=== PATIENT | female | born 1925 | race Caucasian/White ===

== ENCOUNTER 2016-08-27 14:02 | Observation (INO) ==
[2016-08-27] MEDS ORDERED: ALBUTEROL/IPRATROPIUM 2.5mg-0.5mg/3ml NEB AEROSOL ONE (14:28)
[2016-08-27] MEDS ORDERED: SALINE FLUSH 10ml SYRINGE IVF PRN (14:35)
[2016-08-27] MEDS ORDERED: ACETAMINOPHEN 325 MG TABLET PO ONE (15:12)
[2016-08-27] MEDS ORDERED: NS 1,000 ML IV ONE (15:29)
--- NOTE | 2016-08-27 15:29 | XRay Report ---
INDICATION: fever, congestion PROCEDURE: CHEST 2-VIEWS UPRIGHT (PA & LAT) Encounter: Initial COMPARISON: February 06, 2013 Findings: The lungs are clear without new focal airspace consolidation. There is no pleural effusion or pneumothorax. The heart size, pulmonary vascularity and mediastinal contours are unchanged. IMPRESSION: No acute cardiopulmonary disease. .
--- NOTE | 2016-08-27 15:34 | Emergency Department Report ---
Fever HPI - General Chief Complaint: Weakness Stated Complaint: fever/uti Time Seen by Provider: 08/27/16 14:18 Source: patient Mode of arrival: EMS - History of Present Illness HPI Narrative: 89 YO F brought to ED via EMS from long-term with report of fever today. Son who accompanies patient says that his mother has been declining for months but the last 24 hours she has been more fatigue and sleeping more. Patient usually sleep most of the day and only is up at meal times per son. Patient says she has had more SOA the last 24 hours and reports a cough for approx. 5 days. Patient denies chills, sinus congestion, CP, nausea, vomiting abdominal pain, dysuria or sick contacts. Patient is on O2 at long-term 2-3L/NC. complaint: fever - Related Data Home Medications Medication Instructions Recorded Confirmed Amlodipine Besylate 10 mg PO DAILY #0 07/10/10 09/01/16 Furosemide [Lasix] 40 mg PO DAILY #0 07/28/10 09/01/16 Leflunomide [Arava] 20 mg PO DAILY #0 09/10/11 09/01/16 Mirtazapine [Remeron] 7.5 mg PO HS #0 09/10/11 09/01/16 Sennosides/Docusate Sodium [Senna 1 tab PO BIDBS #0 09/10/11 09/01/16 S Tablet] Hydrocodone/APAP 10/325 [[place] 1 tab PO BIDLS #0 12/14/11 09/01/16 10/325] Loratadine 10 mg PO DAILY PRN #0 02/04/13 09/01/16 Omeprazole 20 mg PO DAILY #0 cap 02/04/13 09/01/16 Ondansetron HCl [Zofran] 4 mg PO TID #0 02/04/13 09/01/16 Acetaminophen 650 mg PO DAILY 08/27/16 09/01/16 Acetaminophen 650 mg PO Q4H PRN 08/27/16 09/01/16 CALCIUM CARBONATE Chewable [Tums] 500 mg PO BID 08/27/16 09/01/16 Famotidine [Pepcid] 20 mg PO HS PRN 08/27/16 09/01/16 Gabapentin [Neurontin] 200 mg PO HS 08/27/16 09/01/16 Guaifenesin/Dextromethorphan 10 ml PO Q4H PRN 08/27/16 09/01/16 [Guaifenesin Dm Syrup] Hydrocodone/Acetaminophen 1 tab PO Q6H PRN 08/27/16 09/01/16 [Hydrocodon-Acetaminophn 10-325] Mag Hydrox/Aluminum Hyd/Simeth 30 ml PO BID 08/27/16 09/01/16 [Maalox Advanced Suspension] Mag Hydrox/Aluminum Hyd/Simeth 30 ml PO Q2H PRN 08/27/16 09/01/16 [Maalox Advanced Suspension] Magnesium Hydroxide [Milk of 30 mg PO DAILY PRN 08/27/16 09/01/16 Magnesia] Nitroglycerin [Nitrostat] 0.4 mg SL Q5MIN3 PRN 08/27/16 09/01/16 Oxycodone Cr [OxyCONTIN] 40 mg PO Q12H 08/27/16 09/01/16 Polyethylene Glycol 3350 [Miralax] 17 gm PO DAILY 08/27/16 09/01/16 Potassium Chloride ER Tab [K-Dur] 20 meq PO DAILY 08/27/16 09/01/16 Azithromycin [Zithromax] 250 mg PO DAILY 09/01/16 09/01/16 PredniSONE [Deltasone] 20 mg PO WB 09/01/16 09/01/16 Previous Rx's Medication Instructions Recorded Albuterol/Ipratropium [Duoneb] 3 ml IH RTQID ampul 08/28/16 Allergies Allergy/AdvReac Type Severity Reaction Status Date / Time propoxyphene Allergy Severe HYPOTENSION Verified 09/01/16 10:56 codeine Allergy Unknown Verified 09/01/16 10:56 methotrexate Allergy Unknown Verified 09/01/16 10:56 Review of Systems All systems: reviewed and negative except as stated Constitutional: Reports: fever Respiratory: Reports: as per HPI, cough, dyspnea PFSH Patient Stated Medical History Other Yes: BLADDER CA RA HF CAD GERD Dysphagia UTI Obesity Constipation Surgical History: Cholecystectomy. Hysterectomy. Appendectomy. Uroscopy tube. Cystoscopy Family History: Noncontributory - Social History Housing: long-term Current occupational status: retired Physical Exam - Limitations Limitations: no limitations - General General appearance: alert, in no apparent distress - Normal Exams: Eyes:: Pupils are PERRLA w/ EOMI ENMT:: No facial trauma, nasal exudates, pharyngeal erythema, or exudates are noted Cardiovascular:: Regular rate and rhythm, without murmur or gallop Musculoskeletal:: No tenderness Integumentary:: No rashes Neurological:: Patient is alert, and oriented, cranial nerves, motor/sensory/ cerebellar, exams w/o gross deficits, to observation Psychiatric:: Patient exhibits, appropriate attention, emotion and affect - Respiratory Respiratory exam: Present: crackles (bibasilar) Course - Consultations Consultation #1: I discussed patient's HPI, PMH, labs, CXR, VS and exam findings with Dr. Krishnamurthy. Dr. Krishnamurthy will admit patient. Vital Signs Temperature 99.5 F 08/27/16 14:12 Pulse Rate 86 08/27/16 14:12 Respiratory Rate 18 08/27/16 14:12 Pulse Oximetry 90 08/27/16 14:12 Temperature 97.5 F 08/28/16 07:48 Pulse Rate 81 08/28/16 07:48 Respiratory Rate 22 08/28/16 10:45 Blood Pressure 142/66 H 08/28/16 07:48 Pulse Oximetry 95 08/28/16 10:45 Fever - MDM Narrative Medical decision making narrative: Patient is admitted observation status due to leukocytosis with bandemia, hx. of fever and increased respiratory effort. Heart rate has been in the 80s with stable blood pressure within normal limits while in the ED. I discussed labs and CXR results with patient and her son who agree with admission. - Differential Diagnosis Likely: fever of unknown origin, community acquired pneumonia, pyelonephritis, viral infection, sepsis - Medical Records Attestation: I reviewed the patient's medical records. - Lab Data Attestation: I reviewed the patient's lab results. WBC 18.4 with 17% bands, NA 148, lactate 0.8, procalcitonin 0.09. Patient has uroscopy tube with urine having 2+ blood, nitrate positive, WBC 3-5, 2+ bacteria. Result diagrams: 08/28/16 07:22 08/28/16 07:22 Lab Results 08/27/16 08/27/16 08/27/16 Range/Units 15:04 15:04 15:04 WBC 18.4 H (4.5-11.0) T/MM3 RBC 3.81 L (4.00-5.20) M/MM3 Hgb 10.7 L (12-16) GM/DL Hct 37.2 (36-46) % MCV 97.6 (80-100) UM3 MCH 28.1 (26-34) UUG MCHC 28.8 L (31-37) GM/DL RDW Std Deviation 52.9 H (36.9-50.2) FL Plt Count 368 (130-400) T/MM3 MPV 9.2 L (9.4-12.4) UM3 Immature Gran % (Auto) Not performed Neut % (Auto) Not performed Lymph % (Auto) Not performed [place] % (Auto) Not performed Eos % (Auto) Not performed Baso % (Auto) Not performed Neut # Not performed Lymph # Not performed [place] # Not performed Baso # Not performed Abs Immat Gran (auto) Not performed Neutrophils % (Manual) 70.0 H (33-66) % Band Neutrophils % 17.0 H (0-6) % Lymphocytes % (Manual) 6.0 L (23-45) % Monocytes % (Manual) 4.0 (0-9.0) % Eosinophils % (Manual) 1.0 (0-4) % Basophils % (Manual) 2.0 (0-2) % Neutrophils # (Manual) 12.9 H (1.8-7.7) T/MM3 Band Neutrophils # 3.1 T/MM3 Lymphocytes # (Manual) 1.1 (1-4.8) T/MM3 Monocytes # (Manual) 0.7 (0-0.8) T/MM3 Eosinophils # (Manual) 0.2 (0-0.5) T/MM3 Basophils # (Manual) 0.4 H (0-0.2) T/MM3 RBC Morph Comment 1+ poikilocytosis Turbidity < 20 (0-20) Sodium 148 H (134-144) MEQ/L Potassium 3.7 (3.6-5) MEQ/L Chloride 107 (98-107) MEQ/L Carbon Dioxide 31 H (22-30) MEQ/L Anion Gap 10 (5-15) MEQ/L BUN 20.0 H (7-17) MG/DL Creatinine 0.9 (0.7-1.2) MG/DL GFR Calculation 59 BUN/Creatinine Ratio 22 (6-26) RATIO Glucose 143 H (65-110) MG/DL Calculated Osmolality 289 H (261-280) MOSM/KG Calcium 8.3 L (8.4-10.2) MG/DL Total Bilirubin 0.30 (0.20-1.30) MG/DL Icterus Index < 2 (0-7) AST 16 (14-36) U/L ALT 30 (9-52) U/L Alkaline Phosphatase 130 H (38-126) U/L Total Protein 5.9 L (6.3-8.2) G/DL Albumin 3.5 (3.5-5.0) G/DL Globulin 2.4 (2.4-3.6) G/DL Albumin/Globulin Ratio 1.5 (1.1-2.2) RATIO Plasma Lactate 0.8 (0.6-2.2) MMOL/L Procalcitonin 0.09 NG/ML Specimen Hemolysis < 15 (0-25) Ur Collection Type Urine Color (YELLOW) Urine Clarity Urine pH (5.0-8.0) Ur Specific [place] (1.015-1.025) Urine Protein (NEGATIVE) Urine Glucose (UA) (NEGATIVE) Urine Ketones (NEGATIVE) Urine Occult Blood (NEGATIVE) Urine Nitrate (NEGATIVE) Urine Bilirubin (NEGATIVE) Urine Urobilinogen (NORMAL) EU/DL Ur Leukocyte Esterase (NEGATIVE) Urine RBC (0-3) /HPF Urine WBC (0-5) /HPF Urine WBC Clumps Ur Squamous Epith Cells Urine Bacteria (NEGATIVE) Ur Culture Indicated? 08/27/16 Range/Units 15:57 WBC (4.5-11.0) T/MM3 RBC (4.00-5.20) M/MM3 Hgb (12-16) GM/DL Hct (36-46) % MCV (80-100) UM3 MCH (26-34) UUG MCHC (31-37) GM/DL RDW Std Deviation (36.9-50.2) FL Plt Count (130-400) T/MM3 MPV (9.4-12.4) UM3 Immature Gran % (Auto) Neut % (Auto) Lymph % (Auto) [place] % (Auto) Eos % (Auto) Baso % (Auto) Neut # Lymph # [place] # Baso # Abs Immat Gran (auto) Neutrophils % (Manual) (33-66) % Band Neutrophils % (0-6) % Lymphocytes % (Manual) (23-45) % Monocytes % (Manual) (0-9.0) % Eosinophils % (Manual) (0-4) % Basophils % (Manual) (0-2) % Neutrophils # (Manual) (1.8-7.7) T/MM3 Band Neutrophils # T/MM3 Lymphocytes # (Manual) (1-4.8) T/MM3 Monocytes # (Manual) (0-0.8) T/MM3 Eosinophils # (Manual) (0-0.5) T/MM3 Basophils # (Manual) (0-0.2) T/MM3 RBC Morph Comment Turbidity (0-20) Sodium (134-144) MEQ/L Potassium (3.6-5) MEQ/L Chloride (98-107) MEQ/L Carbon Dioxide (22-30) MEQ/L Anion Gap (5-15) MEQ/L BUN (7-17) MG/DL Creatinine (0.7-1.2) MG/DL GFR Calculation BUN/Creatinine Ratio (6-26) RATIO Glucose (65-110) MG/DL Calculated Osmolality (261-280) MOSM/KG Calcium (8.4-10.2) MG/DL Total Bilirubin (0.20-1.30) MG/DL Icterus Index (0-7) AST (14-36) U/L ALT (9-52) U/L Alkaline Phosphatase (38-126) U/L Total Protein (6.3-8.2) G/DL Albumin (3.5-5.0) G/DL Globulin (2.4-3.6) G/DL Albumin/Globulin Ratio (1.1-2.2) RATIO Plasma Lactate (0.6-2.2) MMOL/L Procalcitonin NG/ML Specimen Hemolysis (0-25) Ur Collection Type Urine, catheter Urine Color Yellow (YELLOW) Urine Clarity Clear Urine pH 7.5 (5.0-8.0) Ur Specific [place] 1.015 (1.015-1.025) Urine Protein Negative (NEGATIVE) Urine Glucose (UA) Negative (NEGATIVE) Urine Ketones Negative (NEGATIVE) Urine Occult Blood 2+ A (NEGATIVE) Urine Nitrate Positive A (NEGATIVE) Urine Bilirubin Negative (NEGATIVE) Urine Urobilinogen 0.2 (NORMAL) EU/DL Ur Leukocyte Esterase Negative (NEGATIVE) Urine RBC 5-10 H (0-3) /HPF Urine WBC 3-5 (0-5) /HPF Urine WBC Clumps Few Ur Squamous Epith Cells 0-5 Urine Bacteria 2+ H (NEGATIVE) Ur Culture Indicated? Cult reflexed &setup - Radiology Data Attestation: I reviewed the patient's radiology results. No acute cardiopulmonary finding. Disposition Clinical Impression: Fever Qualifiers: Fever type: unspecified Qualified Code(s): R50.9 - Fever, unspecified Leukocytosis Qualifiers: Leukocytosis type: bandemia Qualified Code(s): D72.825 - Bandemia Disposition: 02 To OBS [facility] [place] Condition: Improved Time of Disposition: 16:25 - Seen By: midlevel
--- NOTE | 2016-08-27 17:22 | History & Physical Report ---
<Heather Marroquin V - Last Filed: 08/27/16 17:53> History of Present Illness Date: 08/27/16 Chief complaint: Fever, Leukocytosis HPI: Patient is an 89-year-old female who was brought to the emergency room today from [facility] for acute evaluation of fever. She reprots having increased difficulty breathing since yesterday however has had a cough longer. Reports fever started today. She is chronically on oxygen. However, reports that over the last 24 hours has been more short of breath with some wheezing. Further evaluation in the emergency was obtained in the emergency room, including laboratory studies and chest x-ray. Patient was found have an elevated white count of 18.4 (She is chronically on steroids), hemoglobin 10.7, hematocrit 37.2, platelet count 368. Neutrophils 70% with 17% bandemia. Sodium is elevated at 148, potassium 3.7, BUNs 20, creatinine 0.9, glucose 143. Venous lactate was 0.8, pro calcitonin 0.09. A urinalysis is obtained showing 2+ blood , positive nitrates with 5-10 Rbc's and 2+ bacteria. This was obtained from her urostomy. She does chronically utilize oxygen at risk continue to require 4 liters by nasal cannula. She is afebrile. Pulse in the 80s, blood pressure normal. Chest X-ray was unremarkable without evidence of acute infiltrate. Given findings of leukocytosis, fever and increased respiratory effort, the hospitalist services were contacted and accepted patient for outpatient admission for further evaluation and treatment. Did discuss advance directives with patient and son. she does request to be a do not resuscitate Review of Systems All systems: reviewed and no additional remarkable complaints except as stated - Constitutional Constitutional: Present: fatigue, fever(s) - Respiratory Respiratory: Present: cough, dyspnea, wheezing PFSH Patient Stated Medical History History of bladder cancer with cystostomy Congestive heart failure Chronic pain. Coronary artery disease. GERD Depression Rheumatoid arthritis Insomnia History of small bowel obstruction Surgical History: Removal of Bladder due to bladder cancer. Appendectomy. Cholecystectomy. Abdominal hernia surgery 2. Stoma surgery Family History: Mother-hypertension Father-heart disease, tremors - Social History Smoking status: Never smoker Substance use type: does not use Alcohol intake: never Current occupational status: retired Social history: Primary care provider, Dr. Merino Medications Home Medications Medication Instructions Recorded Confirmed Type Amlodipine Besylate 10 mg PO DAILY #0 07/10/10 08/27/16 History Furosemide [Lasix] 40 mg PO DAILY #0 07/28/10 08/27/16 History Leflunomide [Arava] 20 mg PO DAILY #0 09/10/11 08/27/16 History Mirtazapine [Remeron] 7.5 mg PO HS #0 09/10/11 08/27/16 History Sennosides/Docusate Sodium [Senna 1 tab PO BID #0 09/10/11 08/27/16 History S Tablet] Hydrocodone/APAP 10/325 [[place] 1 tab PO BID #0 12/14/11 08/27/16 History 10/325] Loratadine 10 mg PO DAILY PRN #0 02/04/13 08/27/16 History Omeprazole 20 mg PO ACB #0 cap 02/04/13 08/27/16 History Ondansetron HCl [Zofran] 4 mg PO TID #0 02/04/13 08/27/16 History Acetaminophen 650 mg PO DAILY 08/27/16 08/27/16 History Acetaminophen 650 mg PO Q4H PRN 08/27/16 08/27/16 History Albuterol/Ipratropium [Duoneb] 1 unit AEROSOL Q2H PRN 08/27/16 08/27/16 History CALCIUM CARBONATE Chewable [Tums] 500 mg PO BID 08/27/16 08/27/16 History Famotidine [Pepcid] 20 mg PO HS PRN 08/27/16 08/27/16 History Gabapentin [Neurontin] 200 mg PO HS 08/27/16 08/27/16 History Guaifenesin/Dextromethorphan 10 ml PO Q4H PRN 08/27/16 08/27/16 History [Guaifenesin Dm Syrup] Hydrocodone/Acetaminophen 1 tab PO Q6H PRN 08/27/16 08/27/16 History [Hydrocodon-Acetaminophn 10-325] Levofloxacin [Levaquin] 250 mg PO DAILY 08/27/16 08/27/16 History Mag Hydrox/Aluminum Hyd/Simeth 30 ml PO BID 08/27/16 08/27/16 History [Maalox Advanced Suspension] Mag Hydrox/Aluminum Hyd/Simeth 30 ml PO Q2H PRN 08/27/16 08/27/16 History [Maalox Advanced Suspension] Magnesium Hydroxide [Milk of 30 mg PO DAILY PRN 08/27/16 08/27/16 History Magnesia] Nitroglycerin [Nitrostat] 0.4 mg SL Q5MIN3 PRN MDD C 08/27/16 08/27/16 History Oxycodone Cr [OxyCONTIN] 40 mg PO Q12H 08/27/16 08/27/16 History Polyethylene Glycol 3350 [Miralax] 17 gm PO DAILY 08/27/16 08/27/16 History Potassium Chloride ER Tab [K-Dur] 20 meq PO DAILY 08/27/16 08/27/16 History PredniSONE [Deltasone] 5 mg PO NOON 08/27/16 08/27/16 History Allergies Allergy/AdvReac Type Severity Reaction Status Date / Time propoxyphene Allergy Severe HYPOTENSION Verified 08/27/16 14:39 codeine Allergy Unknown Verified 08/27/16 14:39 methotrexate Allergy Unknown Verified 08/27/16 14:39 Exam Vital Signs: Temp Pulse Resp BP Pulse Ox 99.5 F 91 18 139/65 91 08/27/16 14:12 08/27/16 15:45 08/27/16 14:44 08/27/16 15:00 08/27/16 15:00 Height: 1.57 m Weight: 80.5 kg - Constitutional Present: mild distress - Routine HEENT Exam Eye: Present: EOMI, PERRL ENT: Present: mucous membranes moist - Routine Respiratory Exam Present: wheezes, crackles - Routine Cardiovascular Exam Present: RRR, S1, S2, no murmur - Routine Abdominal Exam Present: soft, normoactive bowel sounds, non distended, non tender - Routine Skin Exam Present: intact, warm - Routine Neurological Exam Present: alert, oriented X3, CN II-XII intact - Routine Psychiatric Exam Present: normal affect, normal thought process Results - Labs CBC & Chem 7: 08/27/16 15:04 08/27/16 15:04 Assessment and Plan (1) SIRS (systemic inflammatory response syndrome) Current visit: Yes Status: Acute (2) Leukocytosis Current visit: Yes Status: Acute (3) Respiratory difficulty Current visit: Yes Status: Acute (4) Fever Current visit: Yes Status: Acute (5) Bandemia Current visit: Yes Status: Acute (6) Hypernatremia Current visit: Yes Status: Acute (7) Bladder cancer Current visit: Yes Status: Acute (8) History of cystostomy Current visit: Yes Status: Acute (9) CAD (coronary artery disease) Current visit: Yes Status: Acute (10) CHF (congestive heart failure) Current visit: Yes Status: Acute (11) Fever Current visit: Yes Status: Acute (12) Leukocytosis Current visit: Yes Status: Acute (13) Chronic steroid use Current visit: Yes Status: Chronic DVT Prophylaxis: SCD's Resuscitation Status: Do Not Resuscitate Assessment and Plan: Admit patient as a outpatient for Fever, Leukocytosis with increased respiratory effort SIRS with a suspected pulmonary source completed with leukocytosis, bandemia, and fever will initiate sepsis protocol Initial venous lactate and pro-calcitonin are negative. Will repeat lactate at 2000 Should antimicrobial coverage including azithromycin and Rocephin IV daily. Urine culture, sputum culture and blood cultures are pending. She is chronically on prednisone 5 grams daily for treatment of her chronic RA. Will increase this to 20 milligrams daily to help with pulmonary inflammation. Chronic prednisone use may also be causing leukocytosis. Obtain a proBNP at this time to evaluate CHF status. Will monitor patient on Cardiac telemetry. Did review home medications. Will continue meds. Help Lasix currently as she does appear mildly dehydrated. Patient is a do not resuscitate and this orders written Check CBC and BMP tomorrow morning to follow blood counts, renal function and electrolytes Discussed orders, and plan of care with attending Dr Krishnamurthy [facility] Course Summary Disclaimer: The visit summary below is not to be considered part of the above Progress Note. <Jarad Krishnamurthy - Last Filed: 08/27/16 18:38> History of Present Illness Date: 08/27/16 Exam Vital Signs: Temp Pulse Resp BP Pulse Ox 98.4 F 84 44 H 131/61 82 L 08/27/16 17:50 08/27/16 17:50 08/27/16 17:50 08/27/16 17:50 08/27/16 17:50 Height: 1.55 m Weight: 77.3 kg Results - Labs CBC & Chem 7: 08/27/16 15:04 08/27/16 15:04 Assessment and Plan (1) Leukocytosis Current visit: Yes Status: Acute (2) Fever Current visit: Yes Status: Acute (3) Respiratory difficulty Current visit: Yes Status: Acute (4) Bandemia Current visit: Yes Status: Acute (5) Hypernatremia Current visit: Yes Status: Acute (6) Bladder cancer Current visit: Yes Status: Acute (7) History of cystostomy Current visit: Yes Status: Acute (8) CAD (coronary artery disease) Current visit: Yes Status: Acute (9) CHF (congestive heart failure) Current visit: Yes Status: Acute (10) Fever Current visit: Yes Status: Acute (11) Leukocytosis Current visit: Yes Status: Acute (12) SIRS (systemic inflammatory response syndrome) Current visit: Yes Status: Acute (13) Chronic steroid use Current visit: Yes Status: Chronic Assessment and Plan: Pt comes from nursing facility and reports mostly respiratory sx's as reported above. CXR is unremarkable for acute pathology and no other source of infection is suspected at this point. Will do CAP coverage for now and do work up for other infectious etiology. Repeat CXR tomorrow to see if pt was possibly dehydrated and possibly develops in infiltrtate, if no infiltrate then can consider stopping abx. Viral resp panel has also been ordered to evaluate for viral illness which seems most likely at this point. Will do careful IV fluids since hx of CHF although not clear how severe, will hold lasix at this point. Will stress dose steroids since on chronically for RA. Restart her home pain medications. Pt was seen and examined independently, agree with history and exam findings and care plan was discussed with BET TAKER/ARPN. Hospital Course Summary Disclaimer: The visit summary below is not to be considered part of the above Progress Note.
[2016-08-27] MEDS ORDERED: CEFTRIAXONE 1 G in NS 100 ML IV SCH (17:45)
[2016-08-27] MEDS ORDERED: AZITHROMYCIN IV 500 MG in NS 250ml 250 ML IV SCH (17:45)
[2016-08-27] MEDS ORDERED: ACETAMINOPHEN 325 MG TABLET PO PRN (17:46)
[2016-08-27] MEDS ORDERED: HYDROCODONE/APAP 10 MG/325 MG TABLET PO PRN (17:46)
[2016-08-27] MEDS ORDERED: LORATADINE 10 MG TABLET PO PRN (17:46)
[2016-08-27] MEDS ORDERED: MAG-AL + SIM ORAL LIQUID 30ml PO PRN (18:07)
[2016-08-27 18:12] VITALS: BMI 32.1
[2016-08-27] MEDS ORDERED: FALL RISK - PHARMACY CONSULT XX PRN (18:46)
[2016-08-27] MEDS: AMLODIPINE 10 MG TABLET PO SCH (18:57)
[2016-08-27] MEDS: PredniSONE 20 MG TABLET PO SCH (18:57)
[2016-08-27] MEDS: OXYCODONE 40 MG PO SCH (18:58)
[2016-08-27] MEDS: ALBUTEROL/IPRATROPIUM 2.5mg-0.5mg/3ml NEB IH SCH (20:02)
[2016-08-27] MEDS: 1/2 NS 1,000 ML IV SCH (21:54)
[2016-08-27] MEDS: SENNA + DOCUSATE TABLET PO SCH (21:56)
[2016-08-27] MEDS: HYDROCODONE/APAP 10 MG/325 MG TABLET PO SCH (21:56)
[2016-08-27] MEDS ORDERED: GABAPENTIN 100 MG CAPSULE PO SCH (22:00)
[2016-08-27] MEDS ORDERED: MIRTAZAPINE 15 MG TABLET PO SCH (22:00)
[2016-08-28] MEDS: 1/2 NS 1,000 ML IV SCH ×2 (04:48→11:42)
[2016-08-28] MEDS: OXYCODONE 40 MG PO SCH (05:44)
[2016-08-28] MEDS: ALBUTEROL/IPRATROPIUM 2.5mg-0.5mg/3ml NEB IH SCH (07:27)
[2016-08-28 07:53] VITALS: BP 142/66; PULSE 81; TEMP 97.5
[2016-08-28] MEDS: PredniSONE 20 MG TABLET PO SCH (08:59)
[2016-08-28] MEDS ORDERED: POLYETHYL GLYCOL 3350 17gm PACKET PO SCH (09:00)
[2016-08-28] MEDS ORDERED: FUROSEMIDE 40 MG TABLET PO SCH (09:00)
[2016-08-28] MEDS ORDERED: LEFLUNOMIDE 10 MG TABLET PO SCH (09:00)
[2016-08-28] MEDS: HYDROCODONE/APAP 10 MG/325 MG TABLET PO SCH (09:01)
[2016-08-28] MEDS: AMLODIPINE 10 MG TABLET PO SCH (09:01)
[2016-08-28] MEDS: SENNA + DOCUSATE TABLET PO SCH (09:02)
--- NOTE | 2016-08-28 10:13 | Progress Note ---
<Heather Marroquin V - Last Filed: 08/28/16 10:09> Subjective: Ebony is seen this morning in follow up. She is more alert than she was yesterday on admission. She continues to have significant amount of wheezing and crackles. This morning she feels that she is having an increase in wheezing and coughing, and she does state that she has been drinking increased fluids overnight. Denies having chest pain, or GI complaints. Does note chronic achy joints related to rheumatoid arthritis. Urostomy is draining well without difficulties. No Peripheral edema noted. Objective Vital signs: Temp Pulse Resp BP Pulse Ox 97.5 F 81 20 142/66 H 93 08/28/16 07:48 08/28/16 07:48 08/28/16 07:48 08/28/16 07:48 08/28/16 07:48 Weight: 79.5 kg - Constitutional Present: mild distress - Routine HEENT Exam Head: Present: normocephalic, atraumatic Eye: Present: EOMI, PERRL ENT: Present: mucous membranes moist - Routine Respiratory Exam Present: wheezes, crackles - Routine Cardiovascular Exam Present: RRR, S1, S2, no murmur - Routine Abdominal Exam Present: soft, normoactive bowel sounds - Routine Exam Comments: Urostomy intact without difficulty - Routine Extremities Exam Present: no edema - Routine Back/Spine/Pelvis Exam Back/Spine: Present: full ROM - Routine Skin Exam Present: intact, warm Comments: Chronic achy joints related to her rheumatoid arthritis - Routine Neurological Exam Present: alert, oriented X3, CN II-XII intact - Routine Psychiatric Exam Present: normal affect, normal thought process Results - Labs CBC & Chem 7: 08/28/16 07:22 08/28/16 07:22 Assessment and Plan (1) SIRS (systemic inflammatory response syndrome) Current visit: Yes Status: Acute (2) Leukocytosis Current visit: Yes Status: Acute (3) Respiratory difficulty Current visit: Yes Status: Acute (4) Fever Current visit: Yes Status: Acute (5) Bandemia Current visit: Yes Status: Acute (6) Hypernatremia Current visit: Yes Status: Acute (7) Chronic steroid use Current visit: Yes Status: Chronic (8) Bladder cancer Current visit: Yes Status: Acute (9) History of cystostomy Current visit: Yes Status: Acute (10) CAD (coronary artery disease) Current visit: Yes Status: Acute (11) CHF (congestive heart failure) Current visit: Yes Status: Acute (12) Fever Current visit: Yes Status: Acute (13) Leukocytosis Current visit: Yes Status: Acute (14) Infection due to parainfluenza virus 3 Current visit: Yes Status: Acute Assessment and Plan: 08/28/16 Parainfluenza virus-Continues to have increase wheezing. He was scheduled DuoNeb breathing treatments 4 times a day. RT is suctioning patient routinely. Continuing to cover patient for pneumonia. Given her leukocytosis, bandemia, and respiratory effort on admission. Continue with a azithromycin and Rocephin. Leukocytosis continues to improve, white count today is down slightly to 12.2. Bandemia has resolved. Baseline prednisone was increased to 40 mg daily to help with pulmonary inflammation. - Chronic home oxygen- Patient is unclear her baseline oxygen however she thinks she uses 1 liter all the time - CAD/CHF- Initially Lasix was placed on hold due to Hypernatremia and dehydration. May- need to consider resuming this for diuresising. - Urostomy without complications - RA- appears to be well controlled Continue to follow daily CBC and BMP to monitor blood counts, renal function and electrolytes. Will discuss further orders and plan of care with attending, Dr. Brantley Sepsis Assessment - Evaluation Sepsis screening result: No Definite Risk Hospital Course Summary Disclaimer: The visit summary below is not to be considered part of the above Progress Note. <Arabella Brantley - Last Filed: 08/28/16 12:49> Objective Vital signs: Temp Pulse Resp BP Pulse Ox 97.5 F 81 22 142/66 H 95 08/28/16 07:48 08/28/16 07:48 08/28/16 10:45 08/28/16 07:48 08/28/16 10:45 Results - Labs CBC & Chem 7: 08/28/16 07:22 08/28/16 07:22 Assessment and Plan (1) Infection due to parainfluenza virus 3 Current visit: Yes Status: Acute (2) Leukocytosis Current visit: Yes Status: Acute (3) Fever Current visit: Yes Status: Resolved (4) Respiratory difficulty Current visit: Yes Status: Acute With hypoxia 08/28/16 12:40 (5) Bandemia Current visit: Yes Status: Resolved (6) Hypernatremia Current visit: Yes Status: Resolved (7) Bladder cancer Current visit: Yes Status: Chronic (8) History of cystostomy Current visit: Yes Status: Chronic (9) CAD (coronary artery disease) Current visit: Yes Status: Chronic (10) CHF (congestive heart failure) Current visit: Yes Status: Chronic (11) Fever Current visit: Yes Status: Resolved (12) SIRS (systemic inflammatory response syndrome) Current visit: Yes Status: Acute (13) Chronic steroid use Current visit: Yes Status: Chronic Assessment and Plan: I have independently evaluated and examined this patient. I reviewed the chart, the patient's history, and the OFFICE SERVICES ASSISTANT's documented findings as above. We discussed and formulated the assessment and plan as above with additions as below: Mrs. Boyd reports that cough is improved overall although breathing treatments cause increased cough. She is still coughing up sputum but is unclear if characteristics she is swallowing it. She denied pleuritic pain or palpitations and reports that she slept well. Oxygen remains at 4 L with saturation of 95% currently. Home oxygen flow rate is uncertain although patient suggests 1 L. NAD, respirations nonlabored, coarse breath sounds-improved with cough. No wheezing currently but some rhonchi at the bases. Chest x-ray reviewed by myself-TIFFANI. Parainfluenza 3 positive; sputum culture with gram-positive cocci-White cell/ epithelial cells not commented on. Stable for return to nursing facility. Continue supplemental oxygen continuously , titrate as status permits. Continue azithromycin orally for 4 additional [id number] cocci reported in sputum culture. Titrate prednisone over the next week back to chronic dose as outlined on medication list. Follow-up with Dr. Merino in 7-10 days. Regular diet. Activities as tolerated. Hospital Course Summary Disclaimer: The visit summary below is not to be considered part of the above Progress Note.
[2016-08-28] MEDS ORDERED: ALBUTEROL/IPRATROPIUM 2.5mg-0.5mg/3ml NEB IH SCH (11:00)
[2016-08-28 11:06] VITALS: RESP 22; O2SAT 95
--- NOTE | 2016-08-28 12:24 | Discharge Instructions ---
Discharge Plan - Med Rec/Dispo Referrals/Follow Up: Yolanda Merino MD [Family Provider] - Prescriptions: New Albuterol/Ipratropium [Duoneb] 3 ml IH RTQID ampul PredniSONE [Deltasone] 20 mg PO WB #5 Azithromycin [Zithromax] 1 tab PO DAILY #4 tab Continue Leflunomide [Arava] 20 mg PO DAILY #0 Albuterol/Ipratropium [Duoneb] 1 unit AEROSOL Q2H PRN PRN Reason: Prn Orders Acetaminophen 650 mg PO Q4H PRN PRN Reason: Pain Hydrocodone/Acetaminophen [Hydrocodon-Acetaminophn 10-325] 1 tab PO Q6H PRN PRN Reason: Pain Mag Hydrox/Aluminum Hyd/Simeth [Maalox Advanced Suspension] 30 ml PO Q2H PRN PRN Reason: Heartburn Nitroglycerin [Nitrostat] 0.4 mg SL Q5MIN3 PRN MDD C PRN Reason: Chest Pain Magnesium Hydroxide [Milk of Magnesia] 30 mg PO DAILY PRN PRN Reason: Constipation Mag Hydrox/Aluminum Hyd/Simeth [Maalox Advanced Suspension] 30 ml PO BID Acetaminophen 650 mg PO DAILY Polyethylene Glycol 3350 [Miralax] 17 gm PO DAILY Oxycodone Cr [OxyCONTIN] 40 mg PO Q12H Potassium Chloride ER Tab [K-Dur] 20 meq PO DAILY CALCIUM CARBONATE Chewable [Tums] 500 mg PO BID Amlodipine Besylate 10 mg PO DAILY #0 Furosemide [Lasix] 40 mg PO DAILY #0 Sennosides/Docusate Sodium [Senna S Tablet] 1 tab PO BID #0 Mirtazapine [Remeron] 7.5 mg PO HS #0 Hydrocodone/APAP 10/325 [[place] 10/325] 1 tab PO BID #0 Ondansetron HCl [Zofran] 4 mg PO TID #0 Loratadine 10 mg PO DAILY PRN #0 PRN Reason: Rhinitis Omeprazole 20 mg PO ACB #0 cap Guaifenesin/Dextromethorphan [Guaifenesin Dm Syrup] 10 ml PO Q4H PRN PRN Reason: Cough Famotidine [Pepcid] 20 mg PO HS PRN PRN Reason: Heartburn Gabapentin [Neurontin] 200 mg PO HS PredniSONE [Deltasone] 5 mg PO NOON #0 Discontinued Levofloxacin [Levaquin] 250 mg PO DAILY levoFLOXacin [Levaquin] 500 mg PO DAILY 5 Days Discharge Instructions/Outpatient Orders: Final Provider Discharge Instructions Location: Determined By Patient - Disposition 04 To [facility] Home/Facility
--- NOTE | 2016-08-28 12:35 | Extended Care Facility Orders ---
Admission Orders Admit to:: ICF Allergies/Adverse Reactions: Allergies propoxyphene Allergy (Severe, Verified 08/27/16 14:39) HYPOTENSION codeine Allergy (Unknown, Verified 08/27/16 14:39) methotrexate Allergy (Unknown, Verified 08/27/16 14:39) Admitting Diagnosis: Fever,Leukocytosis Admitting Physician: Arabella Brantley MD Attending Physician: Arabella Brantley MD Code Status: Do Not Resuscitate Anticiapted Length of Stay: 30 days or less Rehab Potential: fair Rehab Prognosis: fair Diet: Regular diet May use Facility Protocol or Standing Orders: Yes May have flu vaccine: Yes Residential Certification: I certify that SNF services are required to be given on an Inpatient basis because of the patients need for fci care on a continuing basis for the condition(s) for which he/she received inpatient hospital services prior to his/her transfer to the SNF. SNF inpatient care is necessary for the following reasons Indication for Residential: Not Applicable - Additional Information In Event of Arrest: Do Not Start CPR Referrals: Yolanda Merino MD [Family Provider] - Additional Orders: REGULAR DIET,. Sputum culture pending at discharge; respiratory viral panel positive parainfluenza 3. Chest x-ray negative for infiltrate/pneumonia. Oxygen at 3-4 L per nasal cannula continuously-titrate as tolerated to saturation > 90%. Oxygen should be worn at all times pending reevaluation. Acappella valve with breathing treatments 3-4 times daily to help mobilize secretions. Prednisone dose increased to 20 mg daily for the next 5 days, then 10 mg for 3 days, then return to usual dose of 5 mg daily. Recommend follow-up with Dr. Merino or JASON in 7-10 days.
--- NOTE | 2016-08-28 12:53 | Discharge Summary ---
Discharge Summary- Blank Discharge Summary: Mrs. Boyd was hospitalized on 08/27 with fever and cough. Respiratory viral panel was positive for Para-Influenza 3. Chest x-ray negative. Patient was felt stable for return to her nursing facility 08/28 with supportive therapy and azithromycin to help mobilize secretions and as a precaution for report of gram-positive cocci on sputum culture. Fever, leukocytosis, left shift all resolved quickly. Patient remains on supplemental oxygen at 3-4 L at discharge. She was felt stable for discharge to [facility]. Activity is as tolerated, diet regular. Follow-up with Dr. Merino in 7-10 days. Please refer to the progress note of 08/28 for details of hospitalization. Primary diagnosis: Parainfluenza 3 bronchitis
== END 2016-08-28 13:45 ==
LOC: MED 14:02 → ED 14:02 → MED 17:50
PROVIDERS: ADMIT Internal Medicine; ATTEND Internal Medicine

== ENCOUNTER 2016-09-01 10:44 | Inpatient (IN) ==
--- NOTE | 2016-09-01 11:40 | XRay Report ---
Indication: SOB PROCEDURE: XR chest 1V: Encounter: Initial Comparison: 08/27/2016 Findings: The lungs are stable in appearance without new focal airspace consolidation. There is no pleural effusion or pneumothorax. The heart size, pulmonary vascularity and mediastinal contours are unchanged. IMPRESSION: Stable appearance of the chest without acute cardiopulmonary disease. .
--- NOTE | 2016-09-01 11:42 | Emergency Department Report ---
General Adult HPI - General Chief complaint: Shortness of Breath/Dyspnea Stated complaint: dyspnea Time Seen by Provider: 09/01/16 10:56 Source: patient, family Mode of arrival: EMS Limitations: no limitations - History of Present Illness HPI narrative: 89-year-old female presents to emergency department with a chief complaint of shortness of breath. Patient noted onset of symptoms a couple of days ago after being treated for a UTI and influenza and released from [facility]. She denies any current pain or discomfort. Patient notes that her symptoms have been gradually progressive in nature since onset. Patient does use chronic home oxygen at approximately 4 L per nasal cannula. She notes that she does feel better after breathing treatments and increasing her oxygen level. She was at [facility] when her symptoms began to exacerbate " a few days ago." No other complaints or associated symptoms. - Related Data Home Medications Medication Instructions Recorded Confirmed Amlodipine Besylate 10 mg PO DAILY #0 07/10/10 09/01/16 Furosemide [Lasix] 40 mg PO DAILY #0 07/28/10 09/01/16 Leflunomide [Arava] 20 mg PO DAILY #0 09/10/11 09/01/16 Mirtazapine [Remeron] 7.5 mg PO HS #0 09/10/11 09/01/16 Sennosides/Docusate Sodium [Senna 1 tab PO BIDBS #0 09/10/11 09/01/16 S Tablet] Hydrocodone/APAP 10/325 [[place] 1 tab PO BIDLS #0 12/14/11 09/01/16 10/325] Loratadine 10 mg PO DAILY PRN #0 02/04/13 09/01/16 Omeprazole 20 mg PO DAILY #0 cap 02/04/13 09/01/16 Ondansetron HCl [Zofran] 4 mg PO TID #0 02/04/13 09/01/16 Acetaminophen 650 mg PO DAILY 08/27/16 09/01/16 Acetaminophen 650 mg PO Q4H PRN 08/27/16 09/01/16 CALCIUM CARBONATE Chewable [Tums] 500 mg PO BID 08/27/16 09/01/16 Famotidine [Pepcid] 20 mg PO HS PRN 08/27/16 09/01/16 Gabapentin [Neurontin] 200 mg PO HS 08/27/16 09/01/16 Guaifenesin/Dextromethorphan 10 ml PO Q4H PRN 08/27/16 09/01/16 [Guaifenesin Dm Syrup] Hydrocodone/Acetaminophen 1 tab PO Q6H PRN 08/27/16 09/01/16 [Hydrocodon-Acetaminophn 10-325] Mag Hydrox/Aluminum Hyd/Simeth 30 ml PO BID 08/27/16 09/01/16 [Maalox Advanced Suspension] Mag Hydrox/Aluminum Hyd/Simeth 30 ml PO Q2H PRN 08/27/16 09/01/16 [Maalox Advanced Suspension] Magnesium Hydroxide [Milk of 30 mg PO DAILY PRN 08/27/16 09/01/16 Magnesia] Nitroglycerin [Nitrostat] 0.4 mg SL Q5MIN3 PRN 08/27/16 09/01/16 Oxycodone Cr [OxyCONTIN] 40 mg PO Q12H 08/27/16 09/01/16 Polyethylene Glycol 3350 [Miralax] 17 gm PO DAILY 08/27/16 09/01/16 Potassium Chloride ER Tab [K-Dur] 20 meq PO DAILY 08/27/16 09/01/16 Azithromycin [Zithromax] 250 mg PO DAILY 09/01/16 09/01/16 PredniSONE [Deltasone] 20 mg PO WB 09/01/16 09/01/16 Previous Rx's Medication Instructions Recorded Albuterol/Ipratropium [Duoneb] 3 ml IH RTQID ampul 08/28/16 Allergies Allergy/AdvReac Type Severity Reaction Status Date / Time propoxyphene Allergy Severe HYPOTENSION Verified 09/01/16 10:56 codeine Allergy Unknown Verified 09/01/16 10:56 methotrexate Allergy Unknown Verified 09/01/16 10:56 Review of Systems Constitutional: Denies: fever, chills Eyes: Denies: eye pain, vision change ENT: Denies: ear pain, throat pain Cardiovascular: Denies: chest pain, palpitations Respiratory: Reports: cough, dyspnea Gastrointestinal: Denies: abdominal pain, nausea, vomiting, diarrhea Genitourinary: Denies: urgency, dysuria Musculoskeletal: Denies: back pain, arthralgia Integumentary: Denies: erythema, rash Neurological: Denies: headache, numbness Psychiatric: Denies: anxiety, depression Endocrine: Denies: fatigue, heat or cold intolerance Hematological/Lymphatic: Denies: easy bleeding, easy bruising Allergic/Immunologic: Denies: facial swelling, urticaria PFSH Patient Stated Medical History Hearing Loss Yes Congestive Heart Failure Yes: PER H&P Other GI Yes: VENTRAL HERNIA Other Yes: BLADDER CA Osteoarthritis Yes Other Musculoskeletal Yes: RA Chemotherapy Yes: 1996 Hypertension, rheumatoid arthritis, GERD, depression, insomnia, CHF, constipation, ovarian failure, chronic pain syndrome, bladder cancer, small bowel obstruction Patient is on 3-4 L nasal cannula at all times. Surgical History: Removal of Bladder due to bladder cancer. Appendectomy. Cholecystectomy. Abdominal hernia surgery 2. Stoma surgery Family History: Reviewed and noncontributory. - Social History Smoking status: Never smoker Substance use type: does not use Alcohol intake frequency: does not drink Physical Exam - Limitations Limitations: no limitations - General General appearance: alert, in no apparent distress - Normal Exams: Head:: Normocephalic without trauma Eyes:: Pupils are PERRLA w/ EOMI, No scleral icterus, irritation, or foreign bodies noted ENMT:: No facial trauma, nasal exudates, pharyngeal erythema, or exudates are noted Dental: No fractured, loose, or missing teeth noted Neck:: Full range of motion, without adenopathy, JVD, bruits or thyromegaly Chest/Respirations:: with good airflow, and symmetry bilaterally (Rhonchi bilaterally. ) Cardiovascular:: Regular rate and rhythm, without murmur or gallop, Pulses 2+ all extremities, capillary refill, <2 seconds all extremities Abdomen:: Bowel sounds positive, soft, non-tender, non-distended, no hepatosplenomegaly, masses or bruits noted Lymphatic:: No lymphadenopathy, or lymphedema noted Musculoskeletal:: No tenderness, or deformity noted, good range of motion, all extremities Integumentary:: No rashes, hives, or bruising noted, hair and nails, without abnormality Neurological:: Patient is alert, and oriented, cranial nerves, motor/sensory/ cerebellar, exams w/o gross deficits, to observation Psychiatric:: Patient exhibits, appropriate attention, emotion and affect Course Vital Signs Temperature 100.6 F H 09/01/16 10:49 Pulse Rate 95 09/01/16 10:49 Respiratory Rate 26 H 09/01/16 10:49 Blood Pressure 174/83 H 09/01/16 10:49 Pulse Oximetry 95 09/01/16 10:49 Temperature 100.6 F H 09/01/16 10:49 Pulse Rate 85 09/01/16 12:30 Respiratory Rate 23 09/01/16 12:30 Blood Pressure 161/74 H 09/01/16 12:30 Pulse Oximetry 94 09/01/16 12:30 Medical Decision Making - MDM Narrative Medical decision making narrative: Labs / imaging were discussed in detail with the patient and questions are answered. Patient is given nebulized aerosol treatments upon arrival to the emergency department. She is titrated to 6 L nasal cannula and maintaining at 92-93%. Patient is given Rocephin 1 g intravenously after sepsis is considered at 1258. Patient is discussed with Dr. Cha will be admitted to the service of the hospitalist in improved condition. Patient is in agreement with the current plan of management. No further orders from accepting physician who is in agreement with the current plan of management. Patient is admitted to the hospital in improved condition. She does not meet criteria for 30 mL/kg of normal saline infusion as her lactate is less than 4 and she is not hypotensive. Sepsis was considered at 1258 and Rocephin 1 g intravenously was ordered. - Differential Diagnosis Pneumonia, viral syndrome, CHF, metabolic disorder - Lab Data Result diagrams: 09/01/16 11:14 09/01/16 11:19 Lab Results 09/01/16 09/01/16 09/01/16 Range/Units 11:14 11:15 11:15 WBC 16.1 H (4.5-11.0) T/MM3 RBC 4.03 (4.00-5.20) M/MM3 Hgb 11.3 L (12-16) GM/DL Hct 39.3 (36-46) % MCV 97.5 (80-100) UM3 MCH 28.0 (26-34) UUG MCHC 28.8 L (31-37) GM/DL RDW Std Deviation 53.8 H (36.9-50.2) FL Plt Count 371 D (130-400) T/MM3 MPV 9.0 L (9.4-12.4) UM3 Immature Gran % (Auto) Not performed Neut % (Auto) Not performed Lymph % (Auto) Not performed [place] % (Auto) Not performed Eos % (Auto) Not performed Baso % (Auto) Not performed Neut # Not performed Lymph # Not performed [place] # Not performed Eos # Not performed Baso # Not performed Abs Immat Gran (auto) Not performed Neutrophils % (Manual) 73.0 H (33-66) % Band Neutrophils % 13.0 H (0-6) % Lymphocytes % (Manual) 4.0 L (23-45) % Monocytes % (Manual) 7.0 (0-9.0) % Eosinophils % (Manual) 1.0 (0-4) % Basophils % (Manual) 1.0 (0-2) % Myelocytes % 1.0 H (0-0) % Neutrophils # (Manual) 11.8 H (1.8-7.7) T/MM3 Band Neutrophils # 2.1 T/MM3 Lymphocytes # (Manual) 0.6 L (1-4.8) T/MM3 Monocytes # (Manual) 1.1 H (0-0.8) T/MM3 Eosinophils # (Manual) 0.2 (0-0.5) T/MM3 Basophils # (Manual) 0.2 (0-0.2) T/MM3 Myelocytes # 0.2 T/MM3 RBC Morph Comment 1+ anisocytosis Turbidity (0-20) Sodium (134-144) MEQ/L Potassium (3.6-5) MEQ/L Chloride (98-107) MEQ/L Carbon Dioxide (22-30) MEQ/L Anion Gap (5-15) MEQ/L BUN (7-17) MG/DL Creatinine (0.7-1.2) MG/DL GFR Calculation BUN/Creatinine Ratio (6-26) RATIO Glucose (65-110) MG/DL Calculated Osmolality (261-280) MOSM/KG Calcium (8.4-10.2) MG/DL Total Bilirubin (0.20-1.30) MG/DL Icterus Index (0-7) AST (14-36) U/L ALT (9-52) U/L Alkaline Phosphatase (38-126) U/L Troponin I (0-0.12) ng/ml B-Natriuretic Peptide 336 H (0-175) pg/mL Total Protein (6.3-8.2) G/DL Albumin (3.5-5.0) G/DL Globulin (2.4-3.6) G/DL Albumin/Globulin Ratio (1.1-2.2) RATIO Plasma Lactate (0.6-2.2) MMOL/L Procalcitonin 0.14 NG/ML Specimen Hemolysis (0-25) Ur Collection Type Urine Color (YELLOW) Urine Clarity Urine pH (5.0-8.0) Ur Specific [place] (1.015-1.025) Urine Protein (NEGATIVE) Urine Glucose (UA) (NEGATIVE) Urine Ketones (NEGATIVE) Urine Occult Blood (NEGATIVE) Urine Nitrate (NEGATIVE) Urine Bilirubin (NEGATIVE) Urine Urobilinogen (NORMAL) EU/DL Ur Leukocyte Esterase (NEGATIVE) Urine RBC (0-3) /HPF Urine WBC (0-5) /HPF Ur Squamous Epith Cells Urine Bacteria (NEGATIVE) Ur Culture Indicated? 09/01/16 09/01/16 Range/Units 11:19 11:42 WBC (4.5-11.0) T/MM3 RBC (4.00-5.20) M/MM3 Hgb (12-16) GM/DL Hct (36-46) % MCV (80-100) UM3 MCH (26-34) UUG MCHC (31-37) GM/DL RDW Std Deviation (36.9-50.2) FL Plt Count (130-400) T/MM3 MPV (9.4-12.4) UM3 Immature Gran % (Auto) Neut % (Auto) Lymph % (Auto) [place] % (Auto) Eos % (Auto) Baso % (Auto) Neut # Lymph # [place] # Eos # Baso # Abs Immat Gran (auto) Neutrophils % (Manual) (33-66) % Band Neutrophils % (0-6) % Lymphocytes % (Manual) (23-45) % Monocytes % (Manual) (0-9.0) % Eosinophils % (Manual) (0-4) % Basophils % (Manual) (0-2) % Myelocytes % (0-0) % Neutrophils # (Manual) (1.8-7.7) T/MM3 Band Neutrophils # T/MM3 Lymphocytes # (Manual) (1-4.8) T/MM3 Monocytes # (Manual) (0-0.8) T/MM3 Eosinophils # (Manual) (0-0.5) T/MM3 Basophils # (Manual) (0-0.2) T/MM3 Myelocytes # T/MM3 RBC Morph Comment Turbidity < 20 (0-20) Sodium 145 H (134-144) MEQ/L Potassium 4.2 (3.6-5) MEQ/L Chloride 100 (98-107) MEQ/L Carbon Dioxide 37 H (22-30) MEQ/L Anion Gap 8 (5-15) MEQ/L BUN 21.0 H (7-17) MG/DL Creatinine 0.8 (0.7-1.2) MG/DL GFR Calculation 68 BUN/Creatinine Ratio 26 (6-26) RATIO Glucose 163 H (65-110) MG/DL Calculated Osmolality 286 H (261-280) MOSM/KG Calcium 8.6 (8.4-10.2) MG/DL Total Bilirubin 0.40 (0.20-1.30) MG/DL Icterus Index < 2 (0-7) AST 31 (14-36) U/L ALT 39 (9-52) U/L Alkaline Phosphatase 114 (38-126) U/L Troponin I < 0.012 (0-0.12) ng/ml B-Natriuretic Peptide (0-175) pg/mL Total Protein 6.6 (6.3-8.2) G/DL Albumin 3.9 (3.5-5.0) G/DL Globulin 2.7 (2.4-3.6) G/DL Albumin/Globulin Ratio 1.4 (1.1-2.2) RATIO Plasma Lactate 1.3 (0.6-2.2) MMOL/L Procalcitonin NG/ML Specimen Hemolysis < 15 (0-25) Ur Collection Type Urine, clean catch Urine Color Yellow (YELLOW) Urine Clarity Clear Urine pH 7.0 (5.0-8.0) Ur Specific [place] 1.010 L (1.015-1.025) Urine Protein Negative (NEGATIVE) Urine Glucose (UA) Negative (NEGATIVE) Urine Ketones Negative (NEGATIVE) Urine Occult Blood Trace-lysed (NEGATIVE) Urine Nitrate Positive A (NEGATIVE) Urine Bilirubin Negative (NEGATIVE) Urine Urobilinogen 0.2 (NORMAL) EU/DL Ur Leukocyte Esterase Negative (NEGATIVE) Urine RBC 0-1 (0-3) /HPF Urine WBC 5-10 H (0-5) /HPF Ur Squamous Epith Cells 0-5 Urine Bacteria 1+ H (NEGATIVE) Ur Culture Indicated? Cult reflexed &setup - Radiology Data CXR - stable chest x-ray with potential viral pattern. Otherwise no acute processes. - EKG Data EKG #1 EKG results narrative: Sinus rhythm. Nonspecific T-wave abnormality. No STEMI. 90 bpm. Disposition Clinical Impression: Hypoxia Leukocytosis Qualifiers: Leukocytosis type: other Qualified Code(s): D72.828 - Other elevated white blood cell count Disposition: 02 To [facility] Acute Care Condition: Improved Prescriptions: No Action Leflunomide [Arava] 20 mg PO DAILY #0 Acetaminophen 650 mg PO Q4H PRN PRN Reason: Pain Hydrocodone/Acetaminophen [Hydrocodon-Acetaminophn 10-325] 1 tab PO Q6H PRN PRN Reason: Pain Mag Hydrox/Aluminum Hyd/Simeth [Maalox Advanced Suspension] 30 ml PO Q2H PRN PRN Reason: Heartburn Nitroglycerin [Nitrostat] 0.4 mg SL Q5MIN3 PRN PRN Reason: Chest Pain Magnesium Hydroxide [Milk of Magnesia] 30 mg PO DAILY PRN PRN Reason: Constipation Mag Hydrox/Aluminum Hyd/Simeth [Maalox Advanced Suspension] 30 ml PO BID Acetaminophen 650 mg PO DAILY Polyethylene Glycol 3350 [Miralax] 17 gm PO DAILY Oxycodone Cr [OxyCONTIN] 40 mg PO Q12H Potassium Chloride ER Tab [K-Dur] 20 meq PO DAILY CALCIUM CARBONATE Chewable [Tums] 500 mg PO BID Albuterol/Ipratropium [Duoneb] 3 ml IH RTQID ampul PredniSONE [Deltasone] 20 mg PO WB Azithromycin [Zithromax] 250 mg PO DAILY Amlodipine Besylate 10 mg PO DAILY #0 Furosemide [Lasix] 40 mg PO DAILY #0 Sennosides/Docusate Sodium [Senna S Tablet] 1 tab PO BIDBS #0 Mirtazapine [Remeron] 7.5 mg PO HS #0 Hydrocodone/APAP 10/325 [[place] 10/325] 1 tab PO BIDLS #0 Ondansetron HCl [Zofran] 4 mg PO TID #0 Loratadine 10 mg PO DAILY PRN #0 PRN Reason: Rhinitis Omeprazole 20 mg PO DAILY #0 cap Guaifenesin/Dextromethorphan [Guaifenesin Dm Syrup] 10 ml PO Q4H PRN PRN Reason: Cough Famotidine [Pepcid] 20 mg PO HS PRN PRN Reason: Heartburn Gabapentin [Neurontin] 200 mg PO HS Referrals: Yolanda Merino MD [Family Provider] - Time of Disposition: 12:45 (Admit. Dr. Cha. ) - Seen By: physician
[2016-09-01] MEDS ORDERED: ALBUTEROL/IPRATROPIUM 2.5mg-0.5mg/3ml NEB AEROSOL ONE (12:03)
[2016-09-01] MEDS ORDERED: CEFTRIAXONE 1 G in NS 100 ML IV ONE (12:58)
[2016-09-01] MEDS ORDERED: ACETAMINOPHEN 500 MG TABLET PO PRN (13:11)
[2016-09-01] MEDS ORDERED: GUAIFENESIN/DM 5ml ORAL LIQUID PO PRN (13:51)
[2016-09-01] MEDS ORDERED: MAG-AL + SIM ORAL LIQUID 30ml PO PRN (13:51)
[2016-09-01] MEDS ORDERED: LORATADINE 10 MG TABLET PO PRN (13:51)
[2016-09-01] MEDS ORDERED: NITROGLYCERIN 0.4 MG SUBLINGUAL TABLET SL PRN (13:51)
[2016-09-01] MEDS ORDERED: LEVOFLOXACIN PB 750 MG/150 ML BAG IV SCH (13:51)
[2016-09-01] MEDS ORDERED: ACETAMINOPHEN 325 MG TABLET PO PRN (13:51)
[2016-09-01] MEDS ORDERED: FAMOTIDINE 20 MG TABLET PO PRN (13:51)
[2016-09-01 13:55] VITALS: BMI 33.3
[2016-09-01] MEDS: OXYCODONE 40 MG PO SCH (14:34)
[2016-09-01] MEDS: GUAIFENESIN/D-METHORPHAN 600mg/30mg TABLET PO SCH ×2 (14:34→21:19)
[2016-09-01] MEDS ORDERED: FALL RISK - PHARMACY CONSULT MC PRN (14:50)
[2016-09-01] MEDS ORDERED: CEFEPIME 1 GM in NS 100 ML IV SCH (15:00)
--- NOTE | 2016-09-01 15:00 | Pharmacy Consult-Antibiotics ---
Pharmacy Consult-Vancomycin - Laboratory Information WBC 16.1 T/MM3 (4.5-11.0) H 09/01/16 11:14 BUN 21.0 MG/DL (7-17) H 09/01/16 11:19 Creatinine 0.8 MG/DL (0.7-1.2) 09/01/16 11:19 Procalcitonin 0.14 NG/ML 09/01/16 11:15 - Consult Information Vancomycin consult noted for Ms Boyd, who is 89 years old and weighs 77.3kg. She has a diagnosis of sepsis. Her serum creatinine is 0.8 mg/dl. Will give a 1500mg IV vancomycin loading dose followed by 1000mg IV q18h. Will continue to monitor and adjust dosing accordingly. Thank you.
[2016-09-01] MEDS: ALBUTEROL/IPRATROPIUM 2.5mg-0.5mg/3ml NEB IH SCH ×2 (15:12→19:34)
--- NOTE | 2016-09-01 15:57 | History & Physical Report ---
<Heather Marroquin V - Last Filed: 09/01/16 15:52> History of Present Illness Date: 09/01/16 Chief complaint: dyspnea, cough HPI: Genesis is a pleasant 89-year-old female who is well known to the hospitalist services as she was recently admitted on 08/27 with a sirs and respiratory difficulty. She was found to have parainfluenza 3 respiratory virus. She was discharged to [facility] on 08/28 for continued oxygen therapy as as well as scheduled breathing treatments and supportive care. She reports that overnight her breathing got significantly worse and she started having increase in coughing. Due to this change in her status, she was brought back to the emergency room today for reevaluation. WBC count was found to be elevated at 16.1, hemoglobin 11.3, hematocrit 39.3, platelet count 371, neutrophils 73% with 13% bandemia. Sodium is elevated at 145 , potassium 4.2, BUN 21, creatinine 0.8. Glucose is 163, proBNP 336. Troponin was negative. Venous lactate is normal at 1.3, pro calcitonin 0.14. Analysis is obtained showing positive nitrates with 5-10 WBCs and 1+ bacteria, however, patient does have a chronic urostomy. A chest x-ray was obtained that did not show any acute cardiopulmonary findings. Patient does use oxygen chronically and it is thought that she is likely on 1-2 liters. On arrival to the emergency room. She is requiring 8 liters of oxygen by nasal cannula to maintain saturations. Heart rate initially 95. She was also initially tachypnea breathing 26 times a minute. Blood pressure has been stable 162/81. Based on these findings. Patient does meet crit criteria for sepsis given known respiratory illness, fever of 100.6, tachycardia 95, tachypnea 26 per minute with leukocytosis. Hospital services were contacted and accepted patient for inpatient mission for further evaluation and treatment Review of Systems All systems: reviewed and no additional remarkable complaints except as stated - Constitutional Constitutional: Present: fatigue - Respiratory Respiratory: Present: cough, wheezing - Integumentary/Breasts Integumentary: Absent: erythema, rash PFSH Patient Stated Medical History Hearing Loss Congestive Heart Failure Chronic abdominal ventral hernia Other Osteoarthritis Rheumatoid arthritis Chemotherapy Recent parainfluenza virus Chronic oxygen dependence Surgical History: Removal of Bladder due to bladder cancer. Appendectomy. Cholecystectomy. Abdominal hernia surgery 2. Stoma surgery Family History: Mother-hypertension, father-heart disease, tremors - Social History Smoking status: Never smoker Substance use type: does not use Current residence[place] Social history: Primary care provider, Dr. Merino Medications Home Medications Medication Instructions Recorded Confirmed Type Amlodipine Besylate 10 mg PO DAILY #0 07/10/10 09/01/16 History Furosemide [Lasix] 40 mg PO DAILY #0 07/28/10 09/01/16 History Leflunomide [Arava] 20 mg PO DAILY #0 09/10/11 09/01/16 History Mirtazapine [Remeron] 7.5 mg PO HS #0 09/10/11 09/01/16 History Sennosides/Docusate Sodium [Senna 1 tab PO BIDBS #0 09/10/11 09/01/16 History S Tablet] Hydrocodone/APAP 10/325 [[place] 1 tab PO BIDLS #0 12/14/11 09/01/16 History 10/325] Loratadine 10 mg PO DAILY PRN #0 02/04/13 09/01/16 History Omeprazole 20 mg PO DAILY #0 cap 02/04/13 09/01/16 History Ondansetron HCl [Zofran] 4 mg PO TID #0 02/04/13 09/01/16 History Acetaminophen 650 mg PO DAILY 08/27/16 09/01/16 History Acetaminophen 650 mg PO Q4H PRN 08/27/16 09/01/16 History CALCIUM CARBONATE Chewable [Tums] 500 mg PO BID 08/27/16 09/01/16 History Famotidine [Pepcid] 20 mg PO HS PRN 08/27/16 09/01/16 History Gabapentin [Neurontin] 200 mg PO HS 08/27/16 09/01/16 History Guaifenesin/Dextromethorphan 10 ml PO Q4H PRN 08/27/16 09/01/16 History [Guaifenesin Dm Syrup] Hydrocodone/Acetaminophen 1 tab PO Q6H PRN 08/27/16 09/01/16 History [Hydrocodon-Acetaminophn 10-325] Mag Hydrox/Aluminum Hyd/Simeth 30 ml PO BID 08/27/16 09/01/16 History [Maalox Advanced Suspension] Mag Hydrox/Aluminum Hyd/Simeth 30 ml PO Q2H PRN 08/27/16 09/01/16 History [Maalox Advanced Suspension] Magnesium Hydroxide [Milk of 30 mg PO DAILY PRN 08/27/16 09/01/16 History Magnesia] Nitroglycerin [Nitrostat] 0.4 mg SL Q5MIN3 PRN 08/27/16 09/01/16 History Oxycodone Cr [OxyCONTIN] 40 mg PO Q12H 08/27/16 09/01/16 History Polyethylene Glycol 3350 [Miralax] 17 gm PO DAILY 08/27/16 09/01/16 History Potassium Chloride ER Tab [K-Dur] 20 meq PO DAILY 08/27/16 09/01/16 History Azithromycin [Zithromax] 250 mg PO DAILY 09/01/16 09/01/16 History PredniSONE [Deltasone] 20 mg PO WB 09/01/16 09/01/16 History Allergies Allergy/AdvReac Type Severity Reaction Status Date / Time propoxyphene Allergy Severe HYPOTENSION Verified 09/01/16 10:56 codeine Allergy Unknown Verified 09/01/16 10:56 methotrexate Allergy Unknown Verified 09/01/16 10:56 Exam Vital Signs: Temperature 97.3 F 09/01/16 13:52 Pulse Rate 85 09/01/16 13:52 Respiratory Rate 20 09/01/16 15:15 Blood Pressure 162/81 H 09/01/16 13:52 Pulse Oximetry 94 09/01/16 13:52 Oxygen Delivery Method Nasal Cannula Oxygen Flow Rate 8 Height: 1.52 m Weight: 77.3 kg Body Mass Index: 33.3 - Constitutional Present: mild distress - Routine HEENT Exam Head: Present: normocephalic, atraumatic Eye: Present: EOMI, PERRL ENT: Present: mucous membranes moist - Routine Neck Exam Present: supple, full ROM - Routine Respiratory Exam Present: respiratory distress (mild), wheezes - Routine Cardiovascular Exam Present: RRR, S1, S2 - Routine Abdominal Exam Present: soft, normoactive bowel sounds - Routine Exam Comments: Urostomy intact and draining well - Routine Back/Spine/Pelvis Exam Back/Spine: Present: full ROM - Routine Skin Exam Present: intact, dry, warm - Routine Neurological Exam Present: alert, oriented X3, CN II-XII intact - Routine Psychiatric Exam Present: normal affect, normal thought process Results - Labs CBC & Chem 7: 09/01/16 11:14 09/01/16 11:19 Assessment and Plan (1) Sepsis Current visit: Yes Status: Acute Manifestations of sepsis include the following 1. Known respiratory illness (see parainfluenza 3) 2. Leukocytosis. Next, and 3. Fever. 4. Heart rate greater than 90. 5. Tachypnea (2) Hypoxia Current visit: Yes Status: Acute 09/01/16 16:01 Baseline oxygen 1-2 liters. Currently requiring 8 liters on admission (3) Bandemia Current visit: No Status: Resolved (4) Leukocytosis Current visit: Yes Status: Acute (5) Infection due to parainfluenza virus 3 Current visit: No Status: Acute (6) CAD (coronary artery disease) Current visit: No Status: Chronic (7) CHF (congestive heart failure) Current visit: No Status: Chronic (8) Chronic steroid use Current visit: No Status: Chronic (9) History of cystostomy Current visit: No Status: Chronic (10) Bladder cancer Current visit: No Status: Chronic (11) RA (rheumatoid arthritis) Current visit: Yes Status: Chronic Assessment and Plan: Admit patient to inpatient status under the care of Dr. Forbes for sepsis, increased respiratory distress with hypoxia Again, patient does meet criteria for sepsis as previously mentioned. Initial venous lactate was normal, will recheck at 1530 as per sepsis protocol. Cover patient with cefepime, Levaquin and vancomycin for antimicrobial coverage. Blood cultures pending. Consult with restricted therapy, oxygen administration and when necessary suctioning. Will encourage use of Acapella 4 times a day. Scheduled DuoNeb 4 times a day as well as Pulmicort twice a day Increase from baseline prednisone to Solu-Medrol 125 grams IV every 6 hours to help with pulmonary inflammation and wheezing. Continue with home dose of Lasix 40 grams daily for gentle diuresis. Monitor on her patient cardiac telemetry. Resume patient's home medication Recheck CBC and BMP tomorrow morning to follow blood counts, renal function and electrolytes Patient does request to be a do not resuscitate Assessment further orders and plan of care with attending, Dr. Forbes. At time of discharge medical care will return to primary care provider, Dr. Merino Sepsis Assessment - Evaluation Sepsis screening result: No Definite Risk Possible source: pulmonary Confirmed Suspected Infection: Yes SIRS Criteria: temperature > or equal to 100.4, pulse > or equal to 90 beats/ minute, WBC > or equal to 12,000, Bands > or equal to 10% - Focused Exam Date exam was performed: 09/01/16 Time exam was performed: 15:30 Respiratory exam: Present: wheezes Cardiovascular exam: Present: RRR, S1, S2 Peripheral pulse strength: Normal Hospital Course Summary Disclaimer: The visit summary below is not to be considered part of the above Progress Note. Hospital Course: 09/01/16 16:08 Admit patient to inpatient status under the care of Dr. Forbes for sepsis, increased respiratory distress with hypoxia Again, patient does meet criteria for sepsis as previously mentioned. Initial venous lactate was normal, will recheck at 1530 as per sepsis protocol. Cover patient with cefepime, Levaquin and vancomycin for antimicrobial coverage. Blood cultures pending. Consult with restricted therapy, oxygen administration and when necessary suctioning. Will encourage use of Acapella 4 times a day. Scheduled DuoNeb 4 times a day as well as Pulmicort twice a day Increase from baseline prednisone to Solu-Medrol 125 grams IV every 6 hours to help with pulmonary inflammation and wheezing. Continue with home dose of Lasix 40 grams daily for gentle diuresis. Monitor on her patient cardiac telemetry. Resume patient's home medication Recheck CBC and BMP tomorrow morning to follow blood counts, renal function and electrolytes Patient does request to be a do not resuscitate Assessment further orders and plan of care with attending, Dr. Forbes. At time of discharge medical care will return to primary care provider, Dr. Merino <Librado Forbes - Last Filed: 09/01/16 17:38> History of Present Illness Date: 09/01/16 [facility] Patient Stated Medical History Hearing Loss Yes Congestive Heart Failure Yes: PER H&P Other GI Yes: VENTRAL HERNIA Other Yes: BLADDER CA Osteoarthritis Yes Other Musculoskeletal Yes: RA Chemotherapy Yes: 1996 Exam Vital Signs: Temperature 97.6 F 09/01/16 16:05 Pulse Rate 84 09/01/16 16:05 Respiratory Rate 16 09/01/16 16:05 Blood Pressure 136/69 09/01/16 16:05 Pulse Oximetry 94 09/01/16 16:05 Oxygen Delivery Method Nasal Cannula Oxygen Flow Rate 8 Height: 1.52 m Weight: 77.3 kg Results - Labs CBC & Chem 7: 09/01/16 11:14 09/01/16 11:19 Assessment and Plan (1) Sepsis Current visit: Yes Status: Acute (2) Infection due to parainfluenza virus 3 Current visit: No Status: Acute (3) Hypoxia Current visit: Yes Status: Acute (4) Bandemia Current visit: No Status: Resolved (5) Leukocytosis Current visit: Yes Status: Acute (6) CAD (coronary artery disease) Current visit: No Status: Chronic (7) CHF (congestive heart failure) Current visit: No Status: Chronic (8) Chronic steroid use Current visit: No Status: Chronic (9) RA (rheumatoid arthritis) Current visit: Yes Status: Chronic (10) Bladder cancer Current visit: No Status: Chronic (11) History of cystostomy Current visit: No Status: Chronic DVT Prophylaxis: SCD's Resuscitation Status: Do Not Resuscitate Assessment and Plan: Have independently interviewed and examined pt. Chart reviewed. Case discussed with ED physician and my [employer]. Care plan developed with my supervision; agree with above. Feeling rough-persistent cough/congestion and SOA. Mobilizing some sputum. Chest wall not sore from coughing, but just cannot shake the cough. Feels more weak and tired. Appetite has been stable-denies choking or gaging when eating. No stomatitis. Bowels stable without diarrhea. No chest pressure or pain. Despite medications initiated at last hospitalization, but not made meaningful gains. Lungs: decreased bilaterally, very course and congested. Frequent cough during the interview and examination. CV: distant, regular AB: soft nt/nd +BS Ext: +[address] MSE: awake alert appropriate Gen: looks tired and weak. Plan: Inpatient treatment for Sepsis syndrome - suspect pulmonary source. Anticipate greater than 2 midnights of care needed. Cefepime, levofloxacin, and vancomycin for pulmonary coverage given recent hospitalization and chronic lung disease. Solu-Medrol 125mg IV q 6 hours to decrease pulmonary congestion. Neb treatment, acapella, Mucinex DM to help respiratory status. Continue supplemental O2. Hold on IVF currently as BP maintained and lactate not elevated. Monitor lab. Will need PT/OT to help improve strength and functional status - start when respiratory status improving. DNR as per her requests. Care to return to Dr Merino at time of discharge from [facility] [place] Hospital Course Summary Disclaimer: The visit summary below is not to be considered part of the above Progress Note.
[2016-09-01] MEDS: METHYLPREDNISOLONE SOD SUCC 125mg/2ml INJECTION IVP SCH ×2 (16:21→21:20)
[2016-09-01] MEDS: CEFEPIME 1 GM in NS 100 ML IV SCH ×2 (16:26→23:06)
[2016-09-01] MEDS: SENNA + DOCUSATE TABLET PO SCH (17:48)
[2016-09-01] MEDS: HYDROCODONE/APAP 10 MG/325 MG TABLET PO SCH (17:48)
[2016-09-01] MEDS: BUDESONIDE INH.SOLN 0.5mg/2ml NEB AEROSOL SCH ×2 (19:34→19:35)
[2016-09-01] MEDS: MAG-AL + SIM ORAL LIQUID 30ml PO SCH (20:05)
[2016-09-01] MEDS: CALCIUM CARBONATE Chewable 500mg TABLET PO SCH (21:18)
[2016-09-01] MEDS: GABAPENTIN 100 MG CAPSULE PO SCH (21:19)
[2016-09-01] MEDS: MIRTAZAPINE 15 MG TABLET PO SCH (21:20)
[2016-09-01] MEDS: HYDROCODONE/APAP 10 MG/325 MG TABLET PO PRN (21:38)
[2016-09-02] MEDS: OXYCODONE 40 MG PO SCH ×2 (01:54→14:47)
[2016-09-02] MEDS: METHYLPREDNISOLONE SOD SUCC 125mg/2ml INJECTION IVP SCH ×4 (03:24→20:37)
[2016-09-02] MEDS: OMEPRAZOLE 20 MG CAPSULE PO SCH (06:18)
[2016-09-02] MEDS: CEFEPIME 1 GM in NS 100 ML IV SCH ×3 (06:19→22:44)
[2016-09-02] MEDS: BUDESONIDE INH.SOLN 0.5mg/2ml NEB AEROSOL SCH ×2 (08:03→19:46)
[2016-09-02] MEDS: ALBUTEROL/IPRATROPIUM 2.5mg-0.5mg/3ml NEB IH SCH ×4 (08:03→19:45)
[2016-09-02] MEDS: SENNA + DOCUSATE TABLET PO SCH ×2 (08:38→17:28)
[2016-09-02] MEDS: ACETAMINOPHEN 325 MG TABLET PO SCH (08:39)
[2016-09-02] MEDS: FUROSEMIDE 40 MG TABLET PO SCH (09:10)
[2016-09-02] MEDS: AMLODIPINE 10 MG TABLET PO SCH (09:11)
[2016-09-02] MEDS: LEFLUNOMIDE 10 MG TABLET PO SCH (09:12)
[2016-09-02] MEDS: CALCIUM CARBONATE Chewable 500mg TABLET PO SCH ×2 (09:12→20:38)
[2016-09-02] MEDS: GUAIFENESIN/D-METHORPHAN 600mg/30mg TABLET PO SCH ×2 (09:13→20:36)
[2016-09-02] MEDS: POLYETHYL. GLYCOL 3350 BOTTLE 238 GM PO SCH (09:14)
[2016-09-02] MEDS: MAG-AL + SIM ORAL LIQUID 30ml PO SCH ×2 (11:12→20:36)
--- NOTE | 2016-09-02 12:24 | Progress Note ---
Subjective: F/U: Sepsis, hypoxia, Feeling slightly better today. Cough with decrease-didn't cough last night. Breathing slightly easier but still feels congestion. No pain with breathing. No nasal congestion or fullness. Not noticing chest pressure, heaviness or palpitations. Ate well for dinner last night and this morning's breakfast. Denies nausea or ab pain. Mouth not feeling sore or uncomfortable. No pain with swallowing. Slept poorly last night as nursing in to turn her every 2 hours. Less weak in general, but was tiring and exhausting transferring to wheelchair this morning. Objective Vital signs: Temperature 95.3 F L 09/02/16 07:32 Pulse Rate 72 09/02/16 08:02 Respiratory Rate 22 09/02/16 11:22 Blood Pressure 173/75 H 09/02/16 07:32 Pulse Oximetry 93 09/02/16 08:13 Oxygen Delivery Method Nasal Cannula Oxygen Flow Rate 5 Weight: 78.3 kg - Constitutional Present: mild distress, obese, cooperative, other (Appears tire, weak, and sleepy) - Routine HEENT Exam Head: Present: normocephalic, atraumatic Eye: Present: EOMI, PERRL ENT: Present: mucous membranes moist (No thrush ) - Routine Respiratory Exam Present: decreased breath sounds, prolonged expiratory phase, respiratory distress (Mild ), rhonchi, wheezes, distant breath sounds, diminished air movement - Routine Cardiovascular Exam Present: RRR. Absent: gallop, rubs - Routine Abdominal Exam Present: soft, normoactive bowel sounds, non distended, non tender - Routine Extremities Exam Present: no edema (SCD in place bilaterally. ), pulses intact, normal capillary refill - Routine Musculoskeletal Exam Musculoskeletal: Present: no clubbing or cyanosis, no joint swelling - Routine Skin Exam Present: intact, dry, warm. Absent: pallor, mottling - Routine Neurological Exam Present: alert, oriented X3, CN II-XII intact, vision grossly intact, hearing grossly intact - Routine Psychiatric Exam Present: normal affect, normal thought process (Converses well. ), cooperative. Absent: anxious, agitated Results - Labs CBC & Chem 7: 09/02/16 05:32 09/02/16 05:32 Assessment and Plan (1) Sepsis Current visit: Yes Status: Acute Manifestations of sepsis include the following 1. Known respiratory illness (see parainfluenza 3) 2. Leukocytosis. Next, and 3. Fever. 4. Heart rate greater than 90. 5. Tachypnea 09/02/16 12:26 1 of 2 BC positive for Staph aureus (2) Infection due to parainfluenza virus 3 Current visit: No Status: Acute (3) Hypoxia Current visit: Yes Status: Acute 09/01/16 16:01 Baseline oxygen 1-2 liters. Currently requiring 8 liters on admission (4) Bandemia Current visit: No Status: Resolved (5) Leukocytosis Current visit: Yes Status: Acute (6) CAD (coronary artery disease) Current visit: No Status: Chronic (7) CHF (congestive heart failure) Current visit: No Status: Chronic (8) Chronic steroid use Current visit: No Status: Chronic (9) RA (rheumatoid arthritis) Current visit: Yes Status: Chronic (10) Bladder cancer Current visit: No Status: Chronic (11) History of cystostomy Current visit: No Status: Chronic DVT Prophylaxis: SCD's Resuscitation Status: Do Not Resuscitate Assessment and Plan: 1 of 2 BC positive for Staph aureus. With positive BC - will recheck cultures. Start Nozin due to positive Staph aureus. Continue cefepime, levofloxacin, and vancomycin for pulmonary coverage. Will place PICC line due to poor IV access and need for vancomycin. Continue with supplemental O2 - O2 needs still above baseline. Solu-Medrol, Neb treatments, Mucinex DM, and acapella to help loosen secretions. Speech to check swallow to make sure dysphagia not contributing to respiratory symptoms. PT/OT to see tomorrow to help strength - do not feel pt is ready to attempt therapy activities today. Recheck CXR in am BMP and CBC in am due to sepsis and medication use. Case discussed with CM. Time spent with patient care 35 minutes. Sepsis Assessment - Evaluation Sepsis screening result: No Definite Risk Hospital Course Summary Disclaimer: The visit summary below is not to be considered part of the above Progress Note. Hospital Course: 09/01/16 Admit patient to inpatient status under the care of Dr. Forbes for sepsis, increased respiratory distress with hypoxia Again, patient does meet criteria for sepsis as previously mentioned. Initial venous lactate was normal, will recheck at 1530 as per sepsis protocol. Cover patient with cefepime, Levaquin and vancomycin for antimicrobial coverage. Blood cultures pending. Consult with restricted therapy, oxygen administration and when necessary suctioning. Will encourage use of Acapella 4 times a day. Scheduled DuoNeb 4 times a day as well as Pulmicort twice a day Increase from baseline prednisone to Solu-Medrol 125 grams IV every 6 hours to help with pulmonary inflammation and wheezing. Continue with home dose of Lasix 40 grams daily for gentle diuresis. Monitor on her patient cardiac telemetry. Resume patient's home medication Recheck CBC and BMP tomorrow morning to follow blood counts, renal function and electrolytes Patient does request to be a do not resuscitate Assessment further orders and plan of care with attending, Dr. Forbes. At time of discharge medical care will return to primary care provider, Dr. Merino 09/02 WBC with decrease despite steroid use - likely see increase in WBC tomorrow. MAP preserved. HR normal. 1 of 2 BC positive for Staph aureus. With positive BC - will recheck cultures. Start Nozin due to positive Staph aureus. Continue cefepime, levofloxacin, and vancomycin for pulmonary coverage. Will place PICC line due to poor IV access and need for vancomycin. Continue with supplemental O2 - O2 needs still above baseline. Solu-Medrol, Neb treatments, Mucinex DM, and acapella to help loosen secretions. Speech to check swallow to make sure dysphagia not contributing to respiratory symptoms. PT/OT to see tomorrow to help strength - do not feel pt is ready to attempt therapy activities today. Recheck CXR in am BMP and CBC in am due to sepsis and medication use.
[2016-09-02] MEDS: HYDROCODONE/APAP 10 MG/325 MG TABLET PO SCH ×2 (12:27→17:28)
[2016-09-02] MEDS: NOZIN NASAL SWAB NAS SCH ×2 (14:47→22:43)
[2016-09-02] MEDS ORDERED: PNEUMOCOCCAL 23 VACCINE 0.5ml INJECTION IM ONE (15:44)
[2016-09-02] MEDS ORDERED: PNEUMOCOCCAL VAC ADMIN CHARGE INJ ONE (16:09)
[2016-09-02] MEDS: GABAPENTIN 100 MG CAPSULE PO SCH (22:44)
[2016-09-02] MEDS: MIRTAZAPINE 15 MG TABLET PO SCH (22:44)
[2016-09-03] MEDS: OXYCODONE 40 MG PO SCH ×2 (02:40→15:00)
[2016-09-03] MEDS: METHYLPREDNISOLONE SOD SUCC 125mg/2ml INJECTION IVP SCH ×4 (02:41→21:46)
[2016-09-03] MEDS: OMEPRAZOLE 20 MG CAPSULE PO SCH (06:55)
[2016-09-03] MEDS: CEFEPIME 1 GM in NS 100 ML IV SCH ×3 (06:55→21:47)
[2016-09-03] MEDS: NOZIN NASAL SWAB NAS SCH ×3 (06:56→22:00)
[2016-09-03] MEDS: ALBUTEROL/IPRATROPIUM 2.5mg-0.5mg/3ml NEB IH SCH ×4 (07:52→18:57)
[2016-09-03] MEDS: BUDESONIDE INH.SOLN 0.5mg/2ml NEB AEROSOL SCH ×2 (07:52→18:57)
--- NOTE | 2016-09-03 08:35 | XRay Report ---
INDICATION: F/U - ? Pneumonia/pulm edema PROCEDURE: CHEST 2-VIEWS UPRIGHT (PA & LAT) Encounter: Initial COMPARISON: September 01, 2016 FINDINGS: New right PICC line in place with the tip projecting over the lower SVC. Lungs are stable with mild hyperinflation but no consolidation. No pleural effusion or pneumothorax. Heart size and mediastinal contours are stable. Pulmonary vascularity appears normal. Impression: New right PICC line appears appropriately positioned. .
[2016-09-03] MEDS: ACETAMINOPHEN 325 MG TABLET PO SCH (08:39)
[2016-09-03] MEDS: HYDROCODONE/APAP 10 MG/325 MG TABLET PO PRN (08:39)
[2016-09-03] MEDS: CALCIUM CARBONATE Chewable 500mg TABLET PO SCH ×2 (08:39→21:46)
[2016-09-03] MEDS: SENNA + DOCUSATE TABLET PO SCH ×2 (08:40→17:18)
[2016-09-03] MEDS: GUAIFENESIN/D-METHORPHAN 600mg/30mg TABLET PO SCH ×2 (08:40→21:46)
[2016-09-03] MEDS: AMLODIPINE 10 MG TABLET PO SCH (08:40)
[2016-09-03] MEDS: LEFLUNOMIDE 10 MG TABLET PO SCH (08:40)
[2016-09-03] MEDS: POLYETHYL. GLYCOL 3350 BOTTLE 238 GM PO SCH (08:42)
[2016-09-03] MEDS: FUROSEMIDE 40 MG TABLET PO SCH (08:43)
[2016-09-03] MEDS ORDERED: LEVOFLOXACIN PB 750 MG/150 ML BAG IV SCH (09:00)
--- NOTE | 2016-09-03 11:05 | Pharmacy Consult-Antibiotics ---
Pharmacy Consult-Vancomycin - Laboratory Information WBC 8.6 T/MM3 (4.5-11.0) 09/03/16 04:54 BUN 32.0 MG/DL (7-17) H 09/03/16 04:54 Creatinine 0.9 MG/DL (0.7-1.2) 09/03/16 04:54 Procalcitonin 0.14 NG/ML 09/01/16 11:15 Vancomycin Trough 11.57 UG/ML (15-20) L 09/03/16 04:54 - Consult Information VANCOMYCIN CONSULT: Vancomycin Trough = 11.57 mcg/ml. Today's SCr = 0.9 mg/dl. Will give Vancomycin 1,250 mg IV q18hrs. Will continue to monitor and make adjustments accordingly. Thank you.
[2016-09-03] MEDS: MAG-AL + SIM ORAL LIQUID 30ml PO SCH ×2 (12:00→21:47)
[2016-09-03] MEDS: HYDROCODONE/APAP 10 MG/325 MG TABLET PO SCH ×2 (13:15→17:21)
--- NOTE | 2016-09-03 16:41 | Progress Note ---
Subjective: F/U: Sepsis, hypoxia Doing about the same-notes cough and congestion. Mobilizing sputum. Chest wall not sore or uncomfortable from coughing. Still some SOA. Not having f/c. Eating well. Mouth not sore or painful. Strength fair. Son at bedside. Objective Vital signs: Temperature 97.0 F 09/03/16 15:33 Pulse Rate 83 09/03/16 16:00 Respiratory Rate 24 09/03/16 15:33 Blood Pressure 159/71 H 09/03/16 15:33 Pulse Oximetry 93 09/03/16 15:33 Oxygen Delivery Method Nasal Cannula Oxygen Flow Rate 4 Weight: 79 kg - Constitutional Present: mild distress, obese, cooperative. Absent: agitated - Routine HEENT Exam Head: Present: normocephalic, atraumatic Eye: Present: EOMI, PERRL ENT: Present: mucous membranes moist (No thrush), nares patent - Routine Respiratory Exam Present: prolonged expiratory phase, rhonchi, wheezes, diminished air movement. Absent: respiratory distress - Routine Cardiovascular Exam Present: RRR - Routine Abdominal Exam Present: soft, normoactive bowel sounds, non tender, distended - Routine Extremities Exam Present: cyanosis, clubbing, no edema, pulses intact - Routine Musculoskeletal Exam Musculoskeletal: Present: no clubbing or cyanosis - Routine Skin Exam Present: dry, warm. Absent: cyanosis, mottling - Routine Neurological Exam Present: alert, oriented X3, CN II-XII intact, vision grossly intact, hearing grossly intact ([place], but can communicate well ). Absent: motor deficit - Routine Psychiatric Exam Present: normal affect, normal thought process, cooperative. Absent: anxious, agitated Results - Labs CBC & Chem 7: 09/03/16 04:54 09/03/16 04:54 Microbiology Results: Microbiology 09/03/16 04:42 Peripheral/Iv Start Blood Culture - Preliminary Culture Initiated - Results Pending 09/03/16 04:54 Peripheral/Iv Start Blood Culture - Preliminary Culture Initiated - Results Pending Assessment and Plan (1) Sepsis Current visit: Yes Status: Acute Manifestations of sepsis include the following 1. Known respiratory illness (see parainfluenza 3) 2. Leukocytosis. Next, and 3. Fever. 4. Heart rate greater than 90. 5. Tachypnea 09/02/16 12:26 1 of 2 BC positive for Staph aureus (2) Infection due to parainfluenza virus 3 Current visit: No Status: Acute (3) Hypoxia Current visit: Yes Status: Acute 09/01/16 16:01 Baseline oxygen 1-2 liters. Currently requiring 8 liters on admission (4) Bandemia Current visit: No Status: Resolved (5) Leukocytosis Problem details: POA Current visit: Yes Status: Resolved (6) CAD (coronary artery disease) Current visit: No Status: Chronic (7) CHF (congestive heart failure) Current visit: No Status: Chronic (8) Chronic steroid use Current visit: No Status: Chronic (9) RA (rheumatoid arthritis) Current visit: Yes Status: Chronic (10) Bladder cancer Current visit: No Status: Chronic (11) History of cystostomy Current visit: No Status: Chronic DVT Prophylaxis: SCD's Resuscitation Status: Do Not Resuscitate Assessment and Plan: Continue cefepime, levofloxacin, and vancomycin for pulmonary coverage. Repeat BC from this am pending. C/S from positive BC from admit pending. Decrease Solu-Medrol to 62.5mg IV q 6 hours. Continue with supplemental O2 - O2 needs still above baseline. Continue Neb treatments, Mucinex DM, and acapella to help loosen secretions. Speech to check swallow to make sure dysphagia not contributing to respiratory symptoms. PT/OT as able to help improve strength. BMP and CBC in am due to sepsis and medication use. Case discussed with patient's son and CM. Time spent with patient care 25 minutes. Sepsis Assessment - Evaluation Sepsis screening result: No Definite Risk Hospital Course Summary Disclaimer: The visit summary below is not to be considered part of the above Progress Note. Hospital Course: 09/01/16 Admit patient to inpatient status under the care of Dr. Forbes for sepsis, increased respiratory distress with hypoxia Again, patient does meet criteria for sepsis as previously mentioned. Initial venous lactate was normal, will recheck at 1530 as per sepsis protocol. Cover patient with cefepime, Levaquin and vancomycin for antimicrobial coverage. Blood cultures pending. Consult with restricted therapy, oxygen administration and when necessary suctioning. Will encourage use of Acapella 4 times a day. Scheduled DuoNeb 4 times a day as well as Pulmicort twice a day Increase from baseline prednisone to Solu-Medrol 125 grams IV every 6 hours to help with pulmonary inflammation and wheezing. Continue with home dose of Lasix 40 grams daily for gentle diuresis. Monitor on her patient cardiac telemetry. Resume patient's home medication Recheck CBC and BMP tomorrow morning to follow blood counts, renal function and electrolytes Patient does request to be a do not resuscitate Assessment further orders and plan of care with attending, Dr. Forbes. At time of discharge medical care will return to primary care provider, Dr. Merino 09/02 WBC with decrease despite steroid use - likely see increase in WBC tomorrow. MAP preserved. HR normal. 1 of 2 BC positive for Staph aureus. With positive BC - will recheck cultures. Start Nozin due to positive Staph aureus. Continue cefepime, levofloxacin, and vancomycin for pulmonary coverage. Will place PICC line due to poor IV access and need for vancomycin. Continue with supplemental O2 - O2 needs still above baseline. Solu-Medrol, Neb treatments, Mucinex DM, and acapella to help loosen secretions. Speech to check swallow to make sure dysphagia not contributing to respiratory symptoms. PT/OT to see tomorrow to help strength - do not feel pt is ready to attempt therapy activities today. Recheck CXR in am BMP and CBC in am due to sepsis and medication use. 09/03/16 Continue cefepime, levofloxacin, and vancomycin for pulmonary coverage. Repeat BC from this am pending. C/S from positive BC from admit pending. Decrease Solu-Medrol to 62.5mg IV q 6 hours. Continue with supplemental O2 - O2 needs still above baseline. Continue Neb treatments, Mucinex DM, and acapella to help loosen secretions. Speech to check swallow to make sure dysphagia not contributing to respiratory symptoms. PT/OT as able to help improve strength. BMP and CBC in am due to sepsis and medication use.
[2016-09-03] MEDS: GABAPENTIN 100 MG CAPSULE PO SCH (21:46)
[2016-09-03] MEDS: MIRTAZAPINE 15 MG TABLET PO SCH (23:48)
[2016-09-04] MEDS: OXYCODONE 40 MG PO SCH ×2 (01:36→14:41)
[2016-09-04] MEDS: METHYLPREDNISOLONE SOD SUCC 125mg/2ml INJECTION IVP SCH ×4 (03:16→21:25)
[2016-09-04] MEDS: OMEPRAZOLE 20 MG CAPSULE PO SCH (06:10)
[2016-09-04] MEDS: NOZIN NASAL SWAB NAS SCH ×3 (06:10→21:26)
[2016-09-04] MEDS: CEFEPIME 1 GM in NS 100 ML IV SCH ×3 (06:11→23:14)
[2016-09-04] MEDS: ALBUTEROL/IPRATROPIUM 2.5mg-0.5mg/3ml NEB IH SCH ×4 (07:34→19:47)
[2016-09-04] MEDS: BUDESONIDE INH.SOLN 0.5mg/2ml NEB AEROSOL SCH ×2 (07:34→19:47)
[2016-09-04] MEDS: CALCIUM CARBONATE Chewable 500mg TABLET PO SCH ×2 (09:36→21:26)
[2016-09-04] MEDS: AMLODIPINE 10 MG TABLET PO SCH (09:36)
[2016-09-04] MEDS: SENNA + DOCUSATE TABLET PO SCH ×2 (09:36→17:14)
[2016-09-04] MEDS: GUAIFENESIN/D-METHORPHAN 600mg/30mg TABLET PO SCH ×2 (09:36→21:26)
[2016-09-04] MEDS: LEFLUNOMIDE 10 MG TABLET PO SCH (09:36)
[2016-09-04] MEDS: FUROSEMIDE 40 MG TABLET PO SCH (09:36)
[2016-09-04] MEDS: ACETAMINOPHEN 325 MG TABLET PO SCH (09:37)
[2016-09-04] MEDS: POLYETHYL GLYCOL 3350 17gm PACKET PO SCH (09:38)
[2016-09-04] MEDS: MAG-AL + SIM ORAL LIQUID 30ml PO SCH ×2 (10:38→21:25)
[2016-09-04] MEDS: HYDROCODONE/APAP 10 MG/325 MG TABLET PO SCH ×2 (12:11→17:14)
--- NOTE | 2016-09-04 13:13 | Progress Note ---
Subjective: F/U: Sepsis, hypoxia Doing well this afternoon. Breathing improving-less SOA and congested. Decreasing cough. Less work and effort to breath. No chest wall pain. Eating well-mouth not sore or uncomfortable. Denies nausea or ab pain. OA pain controlled. Communicates well. Objective Vital signs: Temperature 95.8 F L 09/04/16 08:08 Pulse Rate 78 09/04/16 08:08 Respiratory Rate 20 09/04/16 11:46 Blood Pressure 166/77 H 09/04/16 08:08 Pulse Oximetry 95 09/04/16 11:46 Oxygen Delivery Method Nasal Cannula Oxygen Flow Rate 4 Weight: 79 kg - Constitutional Present: no acute distress, well nourished, well developed, obese, cooperative - Routine HEENT Exam Head: Present: normocephalic, atraumatic Eye: Present: EOMI, PERRL. Absent: conjunctival icterus ENT: Present: mucous membranes moist (No thrush ) - Routine Respiratory Exam Present: decreased breath sounds, rhonchi (End expiratory bilaterally), diminished air movement. Absent: accessory muscle use, respiratory distress - Routine Cardiovascular Exam Present: RRR - Routine Abdominal Exam Present: soft, normoactive bowel sounds, non distended, non tender - Routine Extremities Exam Present: no edema, pulses intact. Absent: cyanosis, clubbing - Routine Musculoskeletal Exam Musculoskeletal: Present: no clubbing or cyanosis, no tenderness - Routine Skin Exam Present: intact, warm. Absent: cyanosis, pallor, mottling - Routine Neurological Exam Present: alert, oriented X3, CN II-XII intact, vision grossly intact, hearing grossly intact ([place] ). Absent: motor deficit - Routine Psychiatric Exam Present: normal affect, normal thought process, cooperative. Absent: depressed , anxious, agitated Results - Labs CBC & Chem 7: 09/04/16 03:56 09/04/16 03:56 Microbiology Results: Microbiology 09/03/16 04:42 Peripheral/Iv Start Blood Culture - Preliminary No Growth After 1 Day 09/03/16 04:54 Peripheral/Iv Start Blood Culture - Preliminary No Growth After 1 Day Assessment and Plan (1) Sepsis Current visit: Yes Status: Resolved Manifestations of sepsis include the following 1. Known respiratory illness (see parainfluenza 3) 2. Leukocytosis. Next, and 3. Fever. 4. Heart rate greater than 90. 5. Tachypnea 09/02/16 12:26 1 of 2 BC positive for Staph aureus (2) Infection due to parainfluenza virus 3 Current visit: No Status: Acute (3) Hypoxia Current visit: Yes Status: Acute 09/01/16 16:01 Baseline oxygen 1-2 liters. Currently requiring 8 liters on admission (4) Bandemia Current visit: No Status: Resolved (5) Leukocytosis Problem details: POA Current visit: Yes Status: Resolved (6) CAD (coronary artery disease) Current visit: No Status: Chronic (7) CHF (congestive heart failure) Current visit: No Status: Chronic (8) Chronic steroid use Current visit: No Status: Chronic (9) RA (rheumatoid arthritis) Current visit: Yes Status: Chronic (10) Bladder cancer Current visit: No Status: Chronic (11) History of cystostomy Current visit: No Status: Chronic DVT Prophylaxis: SCD's Resuscitation Status: Do Not Resuscitate Assessment and Plan: Clinically improving. Breathing improving. Mentation doing well. Continue cefepime and vancomycin for coverage - can stop levofloxacin. Initial BC with MARIA ELENA in 1 of 2 bottles. Repeat BC with no growth. Continue Solu-Medrol 62.5mg IV q 6 hours. Wean O2 as able. Continue Neb treatments, Mucinex DM, and acapella to help loosen secretions. Speech finding no dysphagia - recommends soft diet to make eating easier. Encourage activities as pt able. BMP and CBC in am due to sepsis and medication use. Case discussed with patient's son and CM. Time spent with patient care 25 minutes. Sepsis Assessment - Evaluation Sepsis screening result: No Definite Risk Hospital Course Summary Disclaimer: The visit summary below is not to be considered part of the above Progress Note. Hospital Course: 09/01/16 Admit patient to inpatient status under the care of Dr. Forbes for sepsis, increased respiratory distress with hypoxia. Again, patient does meet criteria for sepsis as previously mentioned. Initial venous lactate was normal, will recheck at 1530 as per sepsis protocol. Cover patient with cefepime, Levaquin and vancomycin for antimicrobial coverage. Blood cultures pending. Consult with restricted therapy, oxygen administration and when necessary suctioning. Will encourage use of Acapella 4 times a day. Scheduled DuoNeb 4 times a day as well as Pulmicort twice a day. Increase from baseline prednisone to Solu-Medrol 125 grams IV every 6 hours to help with pulmonary inflammation and wheezing. Continue with home dose of Lasix 40 grams daily for gentle diuresis. Monitor on her patient cardiac telemetry. Resume patient's home medication. Recheck CBC and BMP tomorrow morning to follow blood counts, renal function and electrolytes. Patient does request to be a do not resuscitate. At time of discharge medical care will return to primary care provider, Dr. Merino 09/02 WBC with decrease despite steroid use - likely see increase in WBC tomorrow. MAP preserved. HR normal. 1 of 2 BC positive for Staph aureus. With positive BC - will recheck cultures. Start Nozin due to positive Staph aureus. Continue cefepime, levofloxacin, and vancomycin for pulmonary coverage. Will place PICC line due to poor IV access and need for vancomycin. Continue with supplemental O2 - O2 needs still above baseline. Solu-Medrol, Neb treatments, Mucinex DM, and acapella to help loosen secretions. Speech to check swallow to make sure dysphagia not contributing to respiratory symptoms. PT/OT to see tomorrow to help strength - do not feel pt is ready to attempt therapy activities today. Recheck CXR in am. BMP and CBC in am due to sepsis and medication use. 09/03/16 Continue cefepime, levofloxacin, and vancomycin for pulmonary coverage. Repeat BC from this am pending. C/S from positive BC from admit pending. Decrease Solu-Medrol to 62.5mg IV q 6 hours. Continue with supplemental O2 - O2 needs still above baseline. Continue Neb treatments, Mucinex DM, and acapella to help loosen secretions. Speech to check swallow to make sure dysphagia not contributing to respiratory symptoms. PT/OT as able to help improve strength. Repeat CXR not showing infiltrate. BMP and CBC in am due to sepsis and medication use. 09/04/16 Clinically improving. Breathing improving. Mentation doing well. Continue cefepime and vancomycin for coverage - can stop levofloxacin. Initial BC with MARIA ELENA in 1 of 2 bottles. Repeat BC with no growth. Continue Solu-Medrol 62.5mg IV q 6 hours. Wean O2 as able. Continue Neb treatments, Mucinex DM, and acapella to help loosen secretions. Speech finding no dysphagia - recommends soft diet to make eating easier. Encourage activities as pt able. BMP and CBC in am due to sepsis and medication use.
[2016-09-04] MEDS: GABAPENTIN 100 MG CAPSULE PO SCH (21:26)
[2016-09-04] MEDS: MIRTAZAPINE 15 MG TABLET PO SCH (21:26)
[2016-09-05] MEDS: OXYCODONE 40 MG PO SCH ×2 (02:33→15:16)
[2016-09-05] MEDS: METHYLPREDNISOLONE SOD SUCC 125mg/2ml INJECTION IVP SCH ×3 (03:24→15:16)
[2016-09-05] MEDS: OMEPRAZOLE 20 MG CAPSULE PO SCH (06:46)
[2016-09-05] MEDS: CEFEPIME 1 GM in NS 100 ML IV SCH ×3 (06:46→22:21)
[2016-09-05] MEDS: NOZIN NASAL SWAB NAS SCH ×3 (06:47→22:10)
[2016-09-05] MEDS: ALBUTEROL/IPRATROPIUM 2.5mg-0.5mg/3ml NEB IH SCH ×4 (07:50→19:16)
[2016-09-05] MEDS: BUDESONIDE INH.SOLN 0.5mg/2ml NEB AEROSOL SCH ×2 (07:50→19:16)
[2016-09-05] MEDS: SALINE FLUSH 10ml SYRINGE IV PRN ×2 (08:18→20:43)
[2016-09-05] MEDS: CALCIUM CARBONATE Chewable 500mg TABLET PO SCH ×2 (08:51→20:38)
[2016-09-05] MEDS: POLYETHYL GLYCOL 3350 17gm PACKET PO SCH (08:52)
[2016-09-05] MEDS: AMLODIPINE 10 MG TABLET PO SCH (08:53)
[2016-09-05] MEDS: FUROSEMIDE 40 MG TABLET PO SCH (08:53)
[2016-09-05] MEDS: GUAIFENESIN/D-METHORPHAN 600mg/30mg TABLET PO SCH ×2 (08:53→20:38)
[2016-09-05] MEDS: LEFLUNOMIDE 10 MG TABLET PO SCH (08:54)
[2016-09-05] MEDS: SENNA + DOCUSATE TABLET PO SCH ×2 (08:54→17:36)
[2016-09-05] MEDS: ACETAMINOPHEN 325 MG TABLET PO SCH (08:54)
[2016-09-05] MEDS ORDERED: FUROSEMIDE 20 MG/2 ML INJECTION IVP ONE (09:49)
--- NOTE | 2016-09-05 09:59 | Progress Note ---
<AlbaroAditi Kelley - Last Filed: 09/05/16 09:56> Subjective: Ebony is seen today in follow up. She reports "I don't feel good." She is noted to have persistent cough immediately following a bite of her cream- of-wheat. She also reports that her "stomach is upset". Some nausea, and discomfort, denies acute pain. Reports some diarrhea recently, now resolved. Last BM was more formed per her report. States that her abdomen feels "big". Objective Vital signs: Temperature 96.5 F L 09/05/16 07:13 Pulse Rate 73 09/05/16 08:00 Respiratory Rate 20 09/05/16 07:13 Blood Pressure 169/81 H 09/05/16 07:13 Pulse Oximetry 96 09/05/16 07:50 Oxygen Delivery Method Nasal Cannula Oxygen Flow Rate 2 Rhythm: Normal Sinus Rhythm (Tele is reviewed. NSR- rate 80) Weight: 81.7 kg - Constitutional Present: mild distress, obese, cooperative Comments: [place], very appropriate with conversation - Routine HEENT Exam Head: Present: normocephalic, atraumatic Eye: Present: EOMI, PERRL - Routine Respiratory Exam Present: dyspnea, rhonchi, wheezes, distant breath sounds Comments: Persistent cough. Significant wheezes bilateral upper lobes. Diminished in bases. SOA following cough. - Routine Cardiovascular Exam Present: RRR, S1, S2, no murmur - Routine Abdominal Exam Present: soft, non tender, distended, firm Comments: Very hypoactive bowel sounds. Abdomen is distended, tympanic. - Routine Exam Comments: Urinary conduit, chronic - Routine Extremities Exam Present: no edema, non tender, pulses intact. Absent: edema - Routine Musculoskeletal Exam Musculoskeletal: Present: no clubbing or cyanosis, limited range of motion. Absent: normal strength - Routine Skin Exam Present: dry, warm - Routine Neurological Exam Present: alert - Routine Psychiatric Exam Present: normal affect, cooperative, good insight, good judgment Results - Labs CBC & Chem 7: 09/05/16 03:52 09/05/16 03:52 Microbiology Results: Microbiology 09/03/16 04:42 Peripheral/Iv Start Blood Culture - Preliminary No Growth After 2 Days 09/03/16 04:54 Peripheral/Iv Start Blood Culture - Preliminary No Growth After 2 Days - Impressions I have reviewed past records; imaging. Assessment and Plan (1) Bandemia Current visit: No Status: Resolved (2) Bladder cancer Current visit: No Status: Chronic (3) History of cystostomy Current visit: No Status: Chronic (4) CAD (coronary artery disease) Current visit: No Status: Chronic (5) CHF (congestive heart failure) Current visit: No Status: Chronic 09/05/16 10:03 pEF. Marked pulmionary HTN. (6) Chronic steroid use Current visit: No Status: Chronic (7) Infection due to parainfluenza virus 3 Current visit: No Status: Acute (8) Leukocytosis Problem details: POA Current visit: Yes Status: Resolved (9) Hypoxia Current visit: Yes Status: Acute 09/01/16 16:01 Baseline oxygen 1-2 liters. Currently requiring 8 liters on admission (10) Sepsis Current visit: Yes Status: Resolved Manifestations of sepsis include the following 1. Known respiratory illness (see parainfluenza 3) 2. Leukocytosis. Next, and 3. Fever. 4. Heart rate greater than 90. 5. Tachypnea 09/02/16 12:26 1 of 2 BC positive for Staph aureus (11) RA (rheumatoid arthritis) Current visit: Yes Status: Chronic (12) At high risk for aspiration Current visit: Yes Status: Acute (13) H/O small bowel obstruction Current visit: Yes Status: Acute 09/05/16 10:06 Seen in the past by Dr. Johnson DVT Prophylaxis: SCD's GI Prophylaxis: other (ppi) Resuscitation Status: Do Not Resuscitate Assessment and Plan: 09/05/16- *URI, Parainfluenza with acute respiratory insufficiency- Weaning steroids. Hx of presbyesophagus, and given cough post PO intake, concern she is aspirating. Will obtain CXR now and consult ST to see her tomorrow. Continue IV steroids, abx, nebs-Duoneb and Pulmicort. Give Lasix IV x 1 now in addition to PO Lasix- sounds to be a bit wet. Echo did show significant pHTN and diastolic dysfunction Cover with broad spectrum antibiotics for empiric coverage. *Abdominal distention- Hx of bladder CA, known intra-abdominal hernia. Past SBO. Dr. Johnson has seen in the past. Get CT of abdomen w/o contrast now. IV Zofran. Monitor. If she starts vomiting, make NPO. *Bacteruria- Enterococcus Fecaelis;PSA- Cefepime and Vanco for pulm. coverage. *RA, Chronic steroid use; Arava High risk for severe infection. Continue antibiotics. *HTN-Norvasc, Lasix *Acute anemia- HGB slowly trending down. Continue to monitor daily labs. Continue PPI for GI protection. Repeat labs in AM. Sepsis Assessment - Evaluation Sepsis screening result: No Definite Risk Hospital Course Summary Disclaimer: The visit summary below is not to be considered part of the above Progress Note. Hospital Course: 09/01/16 Admit patient to inpatient status under the care of Dr. Forbes for sepsis, increased respiratory distress with hypoxia. Again, patient does meet criteria for sepsis as previously mentioned. Initial venous lactate was normal, will recheck at 1530 as per sepsis protocol. Cover patient with cefepime, Levaquin and vancomycin for antimicrobial coverage. Blood cultures pending. Consult with restricted therapy, oxygen administration and when necessary suctioning. Will encourage use of Acapella 4 times a day. Scheduled DuoNeb 4 times a day as well as Pulmicort twice a day. Increase from baseline prednisone to Solu-Medrol 125 grams IV every 6 hours to help with pulmonary inflammation and wheezing. Continue with home dose of Lasix 40 grams daily for gentle diuresis. Monitor on her patient cardiac telemetry. Resume patient's home medication. Recheck CBC and BMP tomorrow morning to follow blood counts, renal function and electrolytes. Patient does request to be a do not resuscitate. At time of discharge medical care will return to primary care provider, Dr. Merino 09/02 WBC with decrease despite steroid use - likely see increase in WBC tomorrow. MAP preserved. HR normal. 1 of 2 BC positive for Staph aureus. With positive BC - will recheck cultures. Start Nozin due to positive Staph aureus. Continue cefepime, levofloxacin, and vancomycin for pulmonary coverage. Will place PICC line due to poor IV access and need for vancomycin. Continue with supplemental O2 - O2 needs still above baseline. Solu-Medrol, Neb treatments, Mucinex DM, and acapella to help loosen secretions. Speech to check swallow to make sure dysphagia not contributing to respiratory symptoms. PT/OT to see tomorrow to help strength - do not feel pt is ready to attempt therapy activities today. Recheck CXR in am. BMP and CBC in am due to sepsis and medication use. 09/03/16 Continue cefepime, levofloxacin, and vancomycin for pulmonary coverage. Repeat BC from this am pending. C/S from positive BC from admit pending. Decrease Solu-Medrol to 62.5mg IV q 6 hours. Continue with supplemental O2 - O2 needs still above baseline. Continue Neb treatments, Mucinex DM, and acapella to help loosen secretions. Speech to check swallow to make sure dysphagia not contributing to respiratory symptoms. PT/OT as able to help improve strength. Repeat CXR not showing infiltrate. BMP and CBC in am due to sepsis and medication use. 09/04/16 Clinically improving. Breathing improving. Mentation doing well. Continue cefepime and vancomycin for coverage - can stop levofloxacin. Initial BC with MARIA ELENA in 1 of 2 bottles. Repeat BC with no growth. Continue Solu-Medrol 62.5mg IV q 6 hours. Wean O2 as able. Continue Neb treatments, Mucinex DM, and acapella to help loosen secretions. Speech finding no dysphagia - recommends soft diet to make eating easier. Encourage activities as pt able. BMP and CBC in am due to sepsis and medication use. 09/05/16 10:19 *URI, Parainfluenza with acute respiratory insufficiency- Weaning steroids. Hx of presbyesophagus, and given cough post PO intake, concern she is aspirating. Will obtain CXR now and consult ST to see her tomorrow. Continue IV steroids, abx, nebs-Duoneb and Pulmicort. Give Lasix IV x 1 now in addition to PO Lasix- sounds to be a bit wet. Echo did show significant pHTN and diastolic dysfunction Cover with broad spectrum antibiotics for empiric coverage. *Abdominal distention- Hx of bladder CA, known intra-abdominal hernia. Past SBO. Dr. Johnson has seen in the past. Get CT of abdomen w/o contrast now. IV Zofran. Monitor. If she starts vomiting, make NPO. *Bacteruria- Enterococcus Fecaelis;PSA- Cefepime and Vanco for pulm. coverage. *RA, Chronic steroid use; Arava High risk for severe infection. Continue antibiotics. *HTN-Norvasc, Lasix *Acute anemia- HGB slowly trending down. Continue to monitor daily labs. Continue PPI for GI protection. Repeat labs in AM <Librado Forbes - Last Filed: 09/05/16 14:07> Objective Vital signs: Temperature 96.5 F L 09/05/16 07:13 Pulse Rate 73 09/05/16 08:00 Respiratory Rate 20 09/05/16 11:38 Blood Pressure 169/81 H 09/05/16 07:13 Pulse Oximetry 96 09/05/16 07:50 Oxygen Delivery Method Nasal Cannula Oxygen Flow Rate 2 Results - Labs CBC & Chem 7: 09/05/16 03:52 09/05/16 03:52 Microbiology Results: Microbiology 09/03/16 04:42 Peripheral/Iv Start Blood Culture - Preliminary No Growth After 2 Days 09/03/16 04:54 Peripheral/Iv Start Blood Culture - Preliminary No Growth After 2 Days Assessment and Plan (1) Sepsis Current visit: Yes Status: Resolved (2) Infection due to parainfluenza virus 3 Current visit: No Status: Acute (3) Hypoxia Current visit: Yes Status: Acute (4) Leukocytosis Problem details: POA Current visit: Yes Status: Resolved (5) CAD (coronary artery disease) Current visit: No Status: Chronic (6) CHF (congestive heart failure) Current visit: No Status: Chronic (7) Chronic steroid use Current visit: No Status: Chronic (8) RA (rheumatoid arthritis) Current visit: Yes Status: Chronic (9) At high risk for aspiration Current visit: Yes Status: Acute (10) H/O small bowel obstruction Current visit: Yes Status: Acute (11) History of cystostomy Current visit: No Status: Chronic (12) Bladder cancer Current visit: No Status: Chronic Resuscitation Status: Do Not Resuscitate Assessment and Plan: Have independently interviewed and examined pt. Chart reviewed. Case discussed with nursing, family, and my [employer]. Above care plan developed with my supervision ; agree with above. Not as good a day-stomach and abdomen not feeling right; more full and bloated. No nausea. Eating well. No mouth pain or soreness. Breathing feels slightly more short and congested-still cough, not mobilizing sputum. No pain with breathing or chest pain. No f/c. Feels more tired and weak today. Lungs: decreased, end expiratory rhonchi bilaterally. No distress with O2. CV: regular AB: soft nt/nd BS decreased. EXT: no edema. SCD in place. MSE: awake alert appropriate; thoughts linear. Gen: Appears tired/weak, but not toxic. Plan: Continue antibiotic therapy of cefepime and vancomycin. Lasix given. Will stop Solu-Medrol and switch to Prednisone 60mg daily starting tomorrow. Encourage deep breathing and acapella use. Continue neb treatments. CT showing no evidence of bowel obstruction or ileus, bladder looks full but urine draining out well (discussed with tele-radiologist). Monitor lab. Hope for discharge in the next several days. Time spent with patient care 25 minutes. Hospital Course Summary Disclaimer: The visit summary below is not to be considered part of the above Progress Note.
[2016-09-05] MEDS: MAG-AL + SIM ORAL LIQUID 30ml PO SCH ×2 (10:04→20:40)
[2016-09-05] MEDS: HYDROCODONE/APAP 10 MG/325 MG TABLET PO SCH ×2 (11:52→17:36)
[2016-09-05] MEDS: MIRTAZAPINE 15 MG TABLET PO SCH (22:11)
[2016-09-05] MEDS: HYDROCODONE/APAP 10 MG/325 MG TABLET PO PRN (22:11)
[2016-09-05] MEDS: GABAPENTIN 100 MG CAPSULE PO SCH (22:11)
[2016-09-06] MEDS: OXYCODONE 40 MG PO SCH ×2 (04:21→15:11)
[2016-09-06] MEDS: SALINE FLUSH 10ml SYRINGE IV PRN ×2 (04:26→04:27)
[2016-09-06] MEDS: CEFEPIME 1 GM in NS 100 ML IV SCH ×2 (06:18→23:06)
[2016-09-06] MEDS: OMEPRAZOLE 20 MG CAPSULE PO SCH (06:19)
[2016-09-06] MEDS: NOZIN NASAL SWAB NAS SCH ×3 (06:19→21:55)
[2016-09-06] MEDS: BUDESONIDE INH.SOLN 0.5mg/2ml NEB AEROSOL SCH ×2 (07:41→19:28)
[2016-09-06] MEDS: ALBUTEROL/IPRATROPIUM 2.5mg-0.5mg/3ml NEB IH SCH ×4 (07:41→19:27)
--- NOTE | 2016-09-06 08:27 | CT Scan Report ---
Indication: Hx bowel obstruction PROCEDURE: CT abdomen pelvis wo con: Encounter: Initial Comparison: CT abdomen and pelvis dated September 16, 2011 Technique: Axial CT images were performed through the abdomen and pelvis without intravenous contrast. Coronal and sagittal two-dimensional reformats. Automated Exposure Control and Iterative Reconstruction dose reducing techniques were utilized. Findings: Consolidation in the right lower lobe. Tiny nodules in the left lower lobe. Unenhanced contours of the liver are unremarkable. Gallbladder is presumed absent. The spleen, almost completely fatty replaced pancreas and adrenal glands show no acute findings. Bilateral renal cortical thinning without hydronephrosis or gross mass disease. There appears to have been prior cystectomy with ileal conduit/bladder Reconstruction. The neobladder is somewhat distended. There is a large left abdominal and pelvic parastomal hernia containing multiple nonobstructed loops of small bowel. Colon appears grossly normal with moderate stool burden. No free air appreciated. Bone windows show degenerative change and scoliosis in the spine. Uterus is surgically absent. Impression: 1. Right lower lobe atelectasis or possibly pneumonia. 2. Distention of the neobladder could be physiologic although correlation with patient's output is recommended. Otherwise no acute disease process seen. There is a preliminary report by [facility]. .
--- NOTE | 2016-09-06 09:03 | XRay Report ---
INDICATION: Cough, SOA PROCEDURE: CHEST 2-VIEWS UPRIGHT (PA & LAT) Encounter: Initial COMPARISON: September 03, 2016 FINDINGS: Right PICC line appears stable in position. Lungs are stable in appearance. No new consolidation. No pleural effusion or pneumothorax. Heart size and mediastinal contours are stable. Pulmonary vascularity appears normal. Impression: Stable appearance of the chest. .
[2016-09-06] MEDS: CALCIUM CARBONATE Chewable 500mg TABLET PO SCH ×2 (09:51→21:54)
[2016-09-06] MEDS: AMLODIPINE 10 MG TABLET PO SCH (09:51)
[2016-09-06] MEDS: PredniSONE 20 MG TABLET PO SCH (09:52)
[2016-09-06] MEDS: GUAIFENESIN/D-METHORPHAN 600mg/30mg TABLET PO SCH ×2 (09:52→21:55)
[2016-09-06] MEDS: ACETAMINOPHEN 325 MG TABLET PO SCH (09:52)
[2016-09-06] MEDS: SENNA + DOCUSATE TABLET PO SCH ×2 (09:53→17:50)
[2016-09-06] MEDS: FUROSEMIDE 40 MG TABLET PO SCH (09:53)
[2016-09-06] MEDS: LEFLUNOMIDE 10 MG TABLET PO SCH (09:53)
[2016-09-06] MEDS: POLYETHYL GLYCOL 3350 17gm PACKET PO SCH (09:54)
--- NOTE | 2016-09-06 10:53 | Progress Note ---
<Heather Marroquin V - Last Filed: 09/06/16 10:29> Subjective: Ebony is seen this morning while working with Speech therapy. She states that she is not feeling good and worse from yesterday although she is unable to explain this. Overall she thinks that her breathing is improved with less wheezing. She is on 2-3 liters currently which is close to her baseline o2 (1L?) . She denies having any pain today and denies GI complaints. Was having some reported coughing with swallowing. Objective Vital signs: Temperature 96.3 F L 09/06/16 08:00 Pulse Rate 86 09/06/16 08:00 Respiratory Rate 16 09/06/16 08:00 Blood Pressure 156/71 H 09/06/16 08:00 Pulse Oximetry 96 09/06/16 08:00 Oxygen Delivery Method Nasal Cannula Oxygen Flow Rate 3 Weight: 80.1 kg - Constitutional Present: no acute distress - Routine HEENT Exam Head: Present: normocephalic, atraumatic Eye: Present: EOMI, PERRL ENT: Present: mucous membranes moist - Routine Respiratory Exam Present: wheezes (expiratory), diminished air movement (bases) - Routine Cardiovascular Exam Present: RRR, S1, S2 - Routine Abdominal Exam Present: soft, normoactive bowel sounds, non tender - Routine Extremities Exam Present: full ROM - Routine Skin Exam Present: intact, dry, warm - Routine Neurological Exam Present: alert, oriented X3, CN II-XII intact - Routine Psychiatric Exam Present: normal affect, normal thought process Results - Labs CBC & Chem 7: 09/06/16 04:34 09/06/16 04:34 Microbiology Results: Microbiology 09/03/16 04:42 Peripheral/Iv Start Blood Culture - Preliminary No Growth After 3 Days 09/03/16 04:54 Peripheral/Iv Start Blood Culture - Preliminary No Growth After 3 Days Assessment and Plan (1) Bladder cancer Current visit: No Status: Chronic (2) History of cystostomy Current visit: No Status: Chronic (3) CAD (coronary artery disease) Current visit: No Status: Chronic (4) CHF (congestive heart failure) Current visit: No Status: Chronic 09/05/16 10:03 pEF. Marked pulmionary HTN. (5) Chronic steroid use Current visit: No Status: Chronic (6) Infection due to parainfluenza virus 3 Current visit: No Status: Acute (7) Leukocytosis Problem details: POA Current visit: Yes Status: Resolved (8) Hypoxia Current visit: Yes Status: Acute 09/01/16 16:01 Baseline oxygen 1-2 liters. Currently requiring 8 liters on admission (9) Sepsis Current visit: Yes Status: Resolved Manifestations of sepsis include the following 1. Known respiratory illness (see parainfluenza 3) 2. Leukocytosis. Next, and 3. Fever. 4. Heart rate greater than 90. 5. Tachypnea 09/02/16 12:26 1 of 2 BC positive for Staph aureus (10) RA (rheumatoid arthritis) Current visit: Yes Status: Chronic (11) At high risk for aspiration Current visit: Yes Status: Acute (12) H/O small bowel obstruction Current visit: Yes Status: Acute 09/05/16 10:06 Seen in the past by Dr. Johnson Assessment and Plan: 09/06/16 Overall respiratory status appears to be improving Continue on oxygen therapy along with schedule breathing treatments. Cefepime and vancomycin for antimicrobial coverage. Second set of blood cultures from 09/03 are negative. Will possibly need intermission coordinator antibiotics. Steroids converted to oral dose of prednisone 60 milligrams daily for ongoing pulmonary inflammation Blood pressure appears to be elevated. Currently on Norvasc and lasix. Will discuss further management with attending Continue with senna plus, MiraLAX for ongoing bowel motivation. No evidence of obstruction or ileus on CT scan. Speech therapy to evaluate swallow Reviewed morning labs. Potassium slightly down at 3.4, and LFTs elevated today. [facility] care and orders with attending,Dr Brantley Sepsis Assessment - Evaluation Sepsis screening result: No Definite Risk Hospital Course Summary Disclaimer: The visit summary below is not to be considered part of the above Progress Note. Hospital Course: 09/01/16 Admit patient to inpatient status under the care of Dr. Forbes for sepsis, increased respiratory distress with hypoxia. Again, patient does meet criteria for sepsis as previously mentioned. Initial venous lactate was normal, will recheck at 1530 as per sepsis protocol. Cover patient with cefepime, Levaquin and vancomycin for antimicrobial coverage. Blood cultures pending. Consult with restricted therapy, oxygen administration and when necessary suctioning. Will encourage use of Acapella 4 times a day. Scheduled DuoNeb 4 times a day as well as Pulmicort twice a day. Increase from baseline prednisone to Solu-Medrol 125 grams IV every 6 hours to help with pulmonary inflammation and wheezing. Continue with home dose of Lasix 40 grams daily for gentle diuresis. Monitor on her patient cardiac telemetry. Resume patient's home medication. Recheck CBC and BMP tomorrow morning to follow blood counts, renal function and electrolytes. Patient does request to be a do not resuscitate. At time of discharge medical care will return to primary care provider, Dr. Merino 09/02 WBC with decrease despite steroid use - likely see increase in WBC tomorrow. MAP preserved. HR normal. 1 of 2 BC positive for Staph aureus. With positive BC - will recheck cultures. Start Nozin due to positive Staph aureus. Continue cefepime, levofloxacin, and vancomycin for pulmonary coverage. Will place PICC line due to poor IV access and need for vancomycin. Continue with supplemental O2 - O2 needs still above baseline. Solu-Medrol, Neb treatments, Mucinex DM, and acapella to help loosen secretions. Speech to check swallow to make sure dysphagia not contributing to respiratory symptoms. PT/OT to see tomorrow to help strength - do not feel pt is ready to attempt therapy activities today. Recheck CXR in am. BMP and CBC in am due to sepsis and medication use. 09/03/16 Continue cefepime, levofloxacin, and vancomycin for pulmonary coverage. Repeat BC from this am pending. C/S from positive BC from admit pending. Decrease Solu-Medrol to 62.5mg IV q 6 hours. Continue with supplemental O2 - O2 needs still above baseline. Continue Neb treatments, Mucinex DM, and acapella to help loosen secretions. Speech to check swallow to make sure dysphagia not contributing to respiratory symptoms. PT/OT as able to help improve strength. Repeat CXR not showing infiltrate. BMP and CBC in am due to sepsis and medication use. 09/04/16 Clinically improving. Breathing improving. Mentation doing well. Continue cefepime and vancomycin for coverage - can stop levofloxacin. Initial BC with MARIA ELENA in 1 of 2 bottles. Repeat BC with no growth. Continue Solu-Medrol 62.5mg IV q 6 hours. Wean O2 as able. Continue Neb treatments, Mucinex DM, and acapella to help loosen secretions. Speech finding no dysphagia - recommends soft diet to make eating easier. Encourage activities as pt able. BMP and CBC in am due to sepsis and medication use. 09/05/16 10:19 *URI, Parainfluenza with acute respiratory insufficiency- Weaning steroids. Hx of presbyesophagus, and given cough post PO intake, concern she is aspirating. Will obtain CXR now and consult ST to see her tomorrow. Continue IV steroids, abx, nebs-Duoneb and Pulmicort. Give Lasix IV x 1 now in addition to PO Lasix- sounds to be a bit wet. Echo did show significant pHTN and diastolic dysfunction Cover with broad spectrum antibiotics for empiric coverage. *Abdominal distention- Hx of bladder CA, known intra-abdominal hernia. Past SBO. Dr. Johnson has seen in the past. Get CT of abdomen w/o contrast now. IV Zofran. Monitor. If she starts vomiting, make NPO. *Bacteruria- Enterococcus Fecaelis;PSA- Cefepime and Vanco for pulm. coverage. *RA, Chronic steroid use; Arava High risk for severe infection. Continue antibiotics. *HTN-Norvasc, Lasix *Acute anemia- HGB slowly trending down. Continue to monitor daily labs. Continue PPI for GI protection. 09/06/16 Overall respiratory status appears to be improving Continue on oxygen therapy along with schedule breathing treatments. Cefepime and vancomycin for antimicrobial coverage. Second set of blood cultures from 09/03 are negative. Will possibly need intermission coordinator antibiotics. Steroids converted to oral dose of prednisone 60 milligrams daily for ongoing pulmonary inflammation Blood pressure appears to be elevated. Currently on Norvasc and lasix. Will discuss further management with attending Continue with senna plus, MiraLAX for ongoing bowel motivation. No evidence of obstruction or ileus on CT scan. Speech therapy to evaluate swallow Reviewed morning labs. Potassium slightly down at 3.4, and LFTs elevated today. Will discuss furhter plan of care and orders with attending,Dr Brantley <Arabella Brantley - Last Filed: 09/06/16 16:00> Objective Vital signs: Temperature 96.3 F L 09/06/16 08:00 Pulse Rate 86 09/06/16 08:00 Respiratory Rate 22 09/06/16 14:38 Blood Pressure 156/71 H 09/06/16 08:00 Pulse Oximetry 95 09/06/16 10:55 Oxygen Delivery Method Nasal Cannula Oxygen Flow Rate 3 Results - Labs CBC & Chem 7: 09/06/16 04:34 09/06/16 04:34 Microbiology Results: Microbiology 09/03/16 04:42 Peripheral/Iv Start Blood Culture - Preliminary No Growth After 3 Days 09/03/16 04:54 Peripheral/Iv Start Blood Culture - Preliminary No Growth After 3 Days Assessment and Plan (1) Bacteremia Current visit: Yes Status: Acute 09/06/16 15:55 MARIA ELENA 1/2 BC on 09/01 (2) Sepsis Current visit: Yes Status: Resolved (3) Infection due to parainfluenza virus 3 Current visit: No Status: Acute (4) CAD (coronary artery disease) Current visit: No Status: Chronic (5) CHF (congestive heart failure) Current visit: No Status: Chronic (6) Chronic steroid use Current visit: No Status: Chronic (7) Leukocytosis Problem details: POA Current visit: Yes Status: Resolved (8) Hypoxia Current visit: Yes Status: Acute (9) RA (rheumatoid arthritis) Current visit: Yes Status: Chronic (10) At high risk for aspiration Current visit: Yes Status: Acute (11) H/O small bowel obstruction Current visit: Yes Status: Acute (12) History of cystostomy Current visit: No Status: Chronic (13) Bladder cancer Current visit: No Status: Chronic Assessment and Plan: I have independently evaluated and examined this patient. I reviewed the chart, the patient's history, and the TYPING OFFICE WORKER's documented findings as above. We discussed and formulated the assessment and plan as above with additions as below: Mrs. Boyd reports feeling poorly today but can't define any specifics other than feeling short of breath and achy. Nursing did not express concerns. Respirations are nonlabored and breath sounds slightly coarse anteriorly but no wheezing is present. Heart tones diminished, no murmur noted. 6 bands persists, improving. Potassium down slightly and BUN up compared to prior days. AST/ALT increase today-normal last 2 times evaluated. Vancomycin trough 24.5. Patient has had 5 days of cefepime-discontinue. May be cause of elevated transaminases. MARIA ELENA in 1/2 blood cultures on admission; blood cultures 5 days earlier were negative and repeat blood cultures 2 days after admission are negative. Discussed echocardiogram versus LISSY with family members to complete evaluation. I'm reluctant to consider less than 2 weeks of therapy with staph aureus bacteremia. Family prefers to avoid sedation if at all possible and subsequently will schedule standard echocardiogram and readdressed LISSY if there is any suggestion of valvular abnormality on standard study. Discussed with both sons. Reassess blood pressure as steroid dose tapered. Potassium supplementation increased-continue to monitor. Chest x-ray obtained yesterday reviewed by myself-no infiltrates. Greater than 35 minutes spent in patient care today-majority in conversation with family members regarding management of bacteremia. Hospital Course Summary Disclaimer: The visit summary below is not to be considered part of the above Progress Note.
[2016-09-06] MEDS: HYDROCODONE/APAP 10 MG/325 MG TABLET PO SCH ×2 (12:52→17:50)
[2016-09-06] MEDS: MAG-AL + SIM ORAL LIQUID 30ml PO SCH ×2 (15:10→21:54)
[2016-09-06] MEDS: SALINE 0.65% NASAL SPRAY 44 ML BOTTLE EA NOSTRIL PRN (15:12)
--- NOTE | 2016-09-06 16:37 | Pharmacy Consult-Antibiotics ---
Pharmacy Consult-Vancomycin - Laboratory Information WBC 8.4 T/MM3 (4.5-11.0) 09/06/16 04:34 BUN 39.0 MG/DL (7-17) H 09/06/16 04:34 Creatinine 0.8 MG/DL (0.7-1.2) 09/06/16 04:34 Procalcitonin 0.14 NG/ML 09/01/16 11:15 Vancomycin Trough 24.54 UG/ML (15-20) H* 09/06/16 13:29 VANCOMYCIN CONSULT: Vancomycin Trough = 24.54 mcg/ml. Today's SCr = 0.8 mg/dl. Est. CrCl ~ 35 ml/min Will change the Vancomycin to 1,250 mg IV q24hrs (1400). Will continue to monitor and make adjustments accordingly. Thank you, Leo Uriarte, Pharmacist.
[2016-09-06] MEDS: GABAPENTIN 100 MG CAPSULE PO SCH (21:55)
[2016-09-06] MEDS: MIRTAZAPINE 15 MG TABLET PO SCH (21:56)
[2016-09-07] MEDS: OXYCODONE 40 MG PO SCH ×2 (01:33→14:42)
[2016-09-07] MEDS: SALINE 0.65% NASAL SPRAY 44 ML BOTTLE EA NOSTRIL PRN ×2 (01:33→09:46)
[2016-09-07] MEDS: NOZIN NASAL SWAB NAS SCH ×3 (06:53→22:30)
[2016-09-07] MEDS: OMEPRAZOLE 20 MG CAPSULE PO SCH (06:54)
[2016-09-07] MEDS: BUDESONIDE INH.SOLN 0.5mg/2ml NEB AEROSOL SCH ×2 (08:01→19:11)
[2016-09-07] MEDS: ALBUTEROL/IPRATROPIUM 2.5mg-0.5mg/3ml NEB IH SCH ×4 (08:01→19:11)
[2016-09-07] MEDS: ONDANSETRON 4 MG/2 ML INJECTION IVP PRN (08:27)
[2016-09-07] MEDS: SALINE FLUSH 10ml SYRINGE IV PRN ×2 (08:28→14:44)
[2016-09-07] MEDS: POLYETHYL GLYCOL 3350 17gm PACKET PO SCH (09:41)
[2016-09-07] MEDS: LEFLUNOMIDE 10 MG TABLET PO SCH (09:42)
[2016-09-07] MEDS: GUAIFENESIN/D-METHORPHAN 600mg/30mg TABLET PO SCH ×2 (09:42→22:33)
[2016-09-07] MEDS: CALCIUM CARBONATE Chewable 500mg TABLET PO SCH ×2 (09:42→22:33)
[2016-09-07] MEDS: FUROSEMIDE 40 MG TABLET PO SCH (09:42)
[2016-09-07] MEDS: PredniSONE 20 MG TABLET PO SCH (09:42)
[2016-09-07] MEDS: SENNA + DOCUSATE TABLET PO SCH ×4 (09:42→22:44)
[2016-09-07] MEDS: ACETAMINOPHEN 325 MG TABLET PO SCH (09:43)
[2016-09-07] MEDS: AMLODIPINE 10 MG TABLET PO SCH (09:43)
[2016-09-07] MEDS: MAG-AL + SIM ORAL LIQUID 30ml PO SCH ×2 (09:44→22:30)
[2016-09-07] MEDS: HYDROCODONE/APAP 10 MG/325 MG TABLET PO PRN ×2 (14:43→22:30)
--- NOTE | 2016-09-07 16:07 | Progress Note ---
Subjective: Mrs. Boyd again reports that she doesn't feel good today. She complained of some nausea but no vomiting. Nursing reports that she's been able to eat meals although appetite is poor. She complains of her chest being congested and some ongoing cough without sputum production. She also complains of constipation and nursing indicates having check for impaction earlier today without identification of significant stool in the rectal vault. Patient complains of weakness but no lightheadedness and is been no fever. Objective Vital signs: Temperature 96.6 F L 09/07/16 15:59 Pulse Rate 91 09/07/16 15:59 Respiratory Rate 16 09/07/16 15:59 Blood Pressure 163/72 H 09/07/16 15:59 Pulse Oximetry 93 09/07/16 15:59 Oxygen Delivery Method Nasal Cannula Oxygen Flow Rate 3.5 EXAM General-NAD, alert, occasional cough HEENT-conjunctiva clear, no conjunctival hemorrhages noted, conjugate gaze, neck supple Lungs-respirations nonlabored, good airflow, breath sounds are coarse in the left upper lobe posteriorly but otherwise clear Cardiac-regular rhythm, S1-S2 Abd-soft, nontender, bowel sounds present although slightly hypoactive. Ext-without edema; no splinter hemorrhages present upper extremity nailbeds Neuro-moving upper extremities symmetrically/normally, no tremor present, normal motor tone Psych-calm, cooperative - Weight: 81.5 kg Results - Labs CBC & Chem 7: 09/07/16 04:05 09/07/16 04:05 Labs: Segs 86, bands 4, monocytes 5, lymphocytes 5 AST 63, ALT 168, early Redman/alkaline phosphatase normal Microbiology Results: Microbiology 09/03/16 04:42 Peripheral/Iv Start Blood Culture - Preliminary No Growth After 4 Days 09/03/16 04:54 Peripheral/Iv Start Blood Culture - Preliminary No Growth After 4 Days Assessment and Plan (1) Bacteremia Current visit: Yes Status: Acute 09/06/16 15:55 MARIA ELENA 1/2 BC on 09/01 (2) Sepsis Current visit: Yes Status: Resolved Manifestations of severe sepsis include the following 1. Known respiratory illness (see parainfluenza 3) 2. Leukocytosis. Next, and 3. Fever. 4. Heart rate greater than 90. 5. Tachypnea 6. Increased O2 demand 09/02/16 12:26 1 of 2 BC positive for Staph aureus (3) Infection due to parainfluenza virus 3 Current visit: No Status: Acute (4) CAD (coronary artery disease) Current visit: No Status: Chronic (5) CHF (congestive heart failure) Current visit: No Status: Chronic 09/05/16 10:03 pEF. Marked pulmionary HTN. (6) Chronic steroid use Current visit: No Status: Chronic (7) Leukocytosis Problem details: POA Current visit: Yes Status: Resolved (8) Hypoxia Current visit: Yes Status: Acute 09/01/16 16:01 Baseline oxygen 1-2 liters. Currently requiring 8 liters on admission (9) RA (rheumatoid arthritis) Current visit: Yes Status: Chronic (10) At high risk for aspiration Current visit: Yes Status: Acute (11) H/O small bowel obstruction Current visit: Yes Status: Acute 09/05/16 10:06 Seen in the past by Dr. Johnson (12) History of cystostomy Current visit: No Status: Chronic (13) Bladder cancer Current visit: No Status: Chronic Assessment and Plan: MARIA ELENA bacteremia Severe sepsis Acute hypoxic respiratory failure Parainfluenza 3 bronchitis Coronary artery disease CHF Rheumatoid arthritis History of bladder cancer/cystectomy/ileal bladder Transaminitis Constipation Day 7 vancomycin for MARIA ELENA bacteremia. Could consider alternate antibiotic however anticipate return to nursing facility to complete antibiotics and daily dosing of vancomycin will be preferred. Has PICC line in right upper extremity. Echo obtained yesterday to exclude vegetations-report pending. Repeat blood cultures negative on 09/03 and will need 2 weeks therapy from that date. Sons prefer to avoid sedation with LISSY unless absolutely necessary. Residual cough but appears significantly improved from recent hospitalization when viral infection identified. Taper prednisone to 40 mg daily. Chest x-ray in a.m. Patient received 5 days of cefepime for pseudomonas in the urine and possible respiratory source. Discontinued in part due to elevated transaminases. Monitor liver enzymes again in several days. Reassess blood pressure as steroid dose tapered. Borderline hypokalemia present yesterday-improved with additional supplement given yesterday. Continue to monitor. Senokot S added to regimen for constipation, Dulcolax suppository to be given today. PT/OT to see, up in chair as tolerates. Nursing reports patient refuses to get out of bed other than up to commode. Discussed with nursing, laboratory data reviewed. Sepsis Assessment - Evaluation Sepsis screening result: No Definite Risk Hospital Course Summary Disclaimer: The visit summary below is not to be considered part of the above Progress Note. Hospital Course: 09/01/16 Admit patient to inpatient status under the care of Dr. Forbes for sepsis, increased respiratory distress with hypoxia. Again, patient does meet criteria for sepsis as previously mentioned. Initial venous lactate was normal, will recheck at 1530 as per sepsis protocol. Cover patient with cefepime, Levaquin and vancomycin for antimicrobial coverage. Blood cultures pending. Consult with restricted therapy, oxygen administration and when necessary suctioning. Will encourage use of Acapella 4 times a day. Scheduled DuoNeb 4 times a day as well as Pulmicort twice a day. Increase from baseline prednisone to Solu-Medrol 125 grams IV every 6 hours to help with pulmonary inflammation and wheezing. Continue with home dose of Lasix 40 grams daily for gentle diuresis. Monitor on her patient cardiac telemetry. Resume patient's home medication. Recheck CBC and BMP tomorrow morning to follow blood counts, renal function and electrolytes. Patient does request to be a do not resuscitate. At time of discharge medical care will return to primary care provider, Dr. Merino 09/02 WBC with decrease despite steroid use - likely see increase in WBC tomorrow. MAP preserved. HR normal. 1 of 2 BC positive for Staph aureus. With positive BC - will recheck cultures. Start Nozin due to positive Staph aureus. Continue cefepime, levofloxacin, and vancomycin for pulmonary coverage. Will place PICC line due to poor IV access and need for vancomycin. Continue with supplemental O2 - O2 needs still above baseline. Solu-Medrol, Neb treatments, Mucinex DM, and acapella to help loosen secretions. Speech to check swallow to make sure dysphagia not contributing to respiratory symptoms. PT/OT to see tomorrow to help strength - do not feel pt is ready to attempt therapy activities today. Recheck CXR in am. BMP and CBC in am due to sepsis and medication use. 09/03/16 Continue cefepime, levofloxacin, and vancomycin for pulmonary coverage. Repeat BC from this am pending. C/S from positive BC from admit pending. Decrease Solu-Medrol to 62.5mg IV q 6 hours. Continue with supplemental O2 - O2 needs still above baseline. Continue Neb treatments, Mucinex DM, and acapella to help loosen secretions. Speech to check swallow to make sure dysphagia not contributing to respiratory symptoms. PT/OT as able to help improve strength. Repeat CXR not showing infiltrate. BMP and CBC in am due to sepsis and medication use. 09/04/16 Clinically improving. Breathing improving. Mentation doing well. Continue cefepime and vancomycin for coverage - can stop levofloxacin. Initial BC with MARIA ELENA in 1 of 2 bottles. Repeat BC with no growth. Continue Solu-Medrol 62.5mg IV q 6 hours. Wean O2 as able. Continue Neb treatments, Mucinex DM, and acapella to help loosen secretions. Speech finding no dysphagia - recommends soft diet to make eating easier. Encourage activities as pt able. BMP and CBC in am due to sepsis and medication use. 09/05/16 10:19 *URI, Parainfluenza with acute respiratory insufficiency- Weaning steroids. Hx of presbyesophagus, and given cough post PO intake, concern she is aspirating. Will obtain CXR now and consult ST to see her tomorrow. Continue IV steroids, abx, nebs-Duoneb and Pulmicort. Give Lasix IV x 1 now in addition to PO Lasix- sounds to be a bit wet. Echo did show significant pHTN and diastolic dysfunction Cover with broad spectrum antibiotics for empiric coverage. *Abdominal distention- Hx of bladder CA, known intra-abdominal hernia. Past SBO. Dr. Johnson has seen in the past. Get CT of abdomen w/o contrast now. IV Zofran. Monitor. If she starts vomiting, make NPO. *Bacteruria- Enterococcus Fecaelis;PSA- Cefepime and Vanco for pulm. coverage. *RA, Chronic steroid use; Arava High risk for severe infection. Continue antibiotics. *HTN-Norvasc, Lasix *Acute anemia- HGB slowly trending down. Continue to monitor daily labs. Continue PPI for GI protection. 09/06/16 Overall respiratory status appears to be improving Continue on oxygen therapy along with schedule breathing treatments. Cefepime and vancomycin for antimicrobial coverage. Second set of blood cultures from 09/03 are negative. Will possibly need terminal system operator antibiotics. Steroids converted to oral dose of prednisone 60 milligrams daily for ongoing pulmonary inflammation Blood pressure appears to be elevated. Currently on Norvasc and lasix. Will discuss further management with attending Continue with senna plus, MiraLAX for ongoing bowel motivation. No evidence of obstruction or ileus on CT scan. Speech therapy to evaluate swallow Reviewed morning labs. Potassium slightly down at 3.4-supplement increased, and LFTs elevated today-cefepime discontinued. Echocardiogram ordered after lengthy discussion with patient's sons to evaluate valves in light of MARIA ELENA bacteremia. 09/07/16 16:30 Day 7 vancomycin for MARIA ELENA bacteremia. Could consider alternate antibiotic however anticipate return to nursing facility to complete antibiotics and daily dosing of vancomycin will be preferred. Has PICC line in right upper extremity. Echo obtained yesterday to exclude vegetations-report pending. Repeat blood cultures negative on 09/03 and will need 2 weeks therapy from that date. Sons prefer to avoid sedation with LISSY unless absolutely necessary. Residual cough but appears significantly improved from recent hospitalization when viral infection identified. Taper prednisone to 40 mg daily. Chest x-ray in a.m. Patient received 5 days of cefepime for pseudomonas in the urine and possible respiratory source. Discontinued in part due to elevated transaminases. Monitor liver enzymes again in several days. Reassess blood pressure as steroid dose tapered. Borderline hypokalemia present yesterday-improved with additional supplement given yesterday. Continue to monitor. Senokot S added to regimen for constipation, Dulcolax suppository to be given today. PT/OT to see, up in chair as tolerates. Nursing reports patient refuses to get out of bed other than up to commode.
[2016-09-07] MEDS ORDERED: BISACODYL 10 MG SUPPOSITORY RECTALLY PRN (16:11)
[2016-09-07] MEDS: HYDROCODONE/APAP 10 MG/325 MG TABLET PO SCH (18:08)
[2016-09-07] MEDS: GABAPENTIN 100 MG CAPSULE PO SCH (22:31)
[2016-09-07] MEDS: MIRTAZAPINE 15 MG TABLET PO SCH (22:32)
[2016-09-08] MEDS: OXYCODONE 40 MG PO SCH ×2 (02:33→14:41)
[2016-09-08] MEDS: HYDROCODONE/APAP 10 MG/325 MG TABLET PO PRN (05:52)
[2016-09-08] MEDS: OMEPRAZOLE 20 MG CAPSULE PO SCH (05:52)
[2016-09-08] MEDS: NOZIN NASAL SWAB NAS SCH ×3 (05:54→20:59)
[2016-09-08] MEDS: ONDANSETRON 4 MG/2 ML INJECTION IVP PRN (05:59)
[2016-09-08] MEDS: ALBUTEROL/IPRATROPIUM 2.5mg-0.5mg/3ml NEB IH SCH ×4 (08:03→19:45)
[2016-09-08] MEDS: BUDESONIDE INH.SOLN 0.5mg/2ml NEB AEROSOL SCH ×2 (08:03→19:45)
--- NOTE | 2016-09-08 08:21 | XRay Report ---
Indication: cough, hypoxia PROCEDURE: XR chest 1V: Encounter: Initial Comparison: September 05, 2016 Findings: The lungs are stable in appearance without new focal airspace consolidation. There is no pleural effusion or pneumothorax. Right PICC line. Monitoring leads. The heart size, pulmonary vascularity and mediastinal contours are unchanged. IMPRESSION: Stable appearance of the chest without acute cardiopulmonary disease. .
[2016-09-08] MEDS: POLYETHYL GLYCOL 3350 17gm PACKET PO SCH (08:49)
[2016-09-08] MEDS: ACETAMINOPHEN 325 MG TABLET PO SCH (09:05)
[2016-09-08] MEDS: CALCIUM CARBONATE Chewable 500mg TABLET PO SCH ×2 (09:05→20:53)
[2016-09-08] MEDS: LEFLUNOMIDE 10 MG TABLET PO SCH (09:05)
[2016-09-08] MEDS: AMLODIPINE 10 MG TABLET PO SCH (09:05)
[2016-09-08] MEDS: FUROSEMIDE 40 MG TABLET PO SCH (09:06)
[2016-09-08] MEDS: PredniSONE 20 MG TABLET PO SCH (09:06)
[2016-09-08] MEDS: SENNA + DOCUSATE TABLET PO SCH ×4 (09:06→20:55)
[2016-09-08] MEDS: MAG-AL + SIM ORAL LIQUID 30ml PO SCH ×2 (09:07→20:54)
[2016-09-08] MEDS: GUAIFENESIN/D-METHORPHAN 600mg/30mg TABLET PO SCH ×2 (09:07→20:54)
--- NOTE | 2016-09-08 11:09 | Progress Note ---
Subjective: Mrs. Boyd describes continued nausea. She reports that she didn't feel well when she woke up today-again nonspecific-felt better after eating and being up in a chair. She reports that she is weaker than usual but at baseline requires 1 person to transfer from bed to motorized scooter. She is nonambulatory. Her appetite is fair and she reports having loose stool after Dulcolax suppository yesterday. She describes pain all over but no chest pain. She has been wheezing some and continues to cough although no sputum is present. Patient reports that she swallowed breath and she's not sure her oxygen cannula is working because she can't feel oxygen flow. She reports being on 4 L supplemental oxygen at the nursing facility. Objective Vital signs: Temperature 95.4 F L 09/08/16 07:00 Pulse Rate 87 09/08/16 07:00 Respiratory Rate 18 09/08/16 08:04 Blood Pressure 182/86 H 09/08/16 07:00 Pulse Oximetry 96 09/08/16 08:04 Oxygen Delivery Method Nasal Cannula Oxygen Flow Rate 2 EXAM General-NAD, alert, fluent speech, hard of hearing HEENT-conjunctiva clear, conjugate gaze, oropharynx clear, neck supple Lungs-respirations nonlabored, audible upper airway noise and faint rhonchi upper anterior lung sanchez, inspiratory/expiratory crackles usp up posteriorly lung sanchez, no wheezing present Cardiac-regular rhythm, S1 and S2 Abd-soft, nontender, diminished bowel sounds Ext-without edema Neuro-moves upper extremities symmetrically, assist with repositioning Psych-oriented 3, calm, cooperative - Weight: 81.5 kg Results - Labs CBC & Chem 7: 09/07/16 04:05 09/07/16 04:05 Microbiology Results: Microbiology 09/03/16 04:42 Peripheral/Iv Start Blood Culture - Final No Growth After 5 Days 09/03/16 04:54 Peripheral/Iv Start Blood Culture - Final No Growth After 5 Days - Imaging and Cardiology Chest x-ray Status: image reviewed by me ([email or web address]) Assessment and Plan (1) Bacteremia Current visit: Yes Status: Acute 09/06/16 15:55 MARIA ELENA 1/2 BC on 09/01 (2) Sepsis Current visit: Yes Status: Resolved Manifestations of severe sepsis include the following 1. Known respiratory illness (see parainfluenza 3) 2. Leukocytosis. Next, and 3. Fever. 4. Heart rate greater than 90. 5. Tachypnea 6. Increased O2 demand 09/02/16 12:26 1 of 2 BC positive for Staph aureus (3) Infection due to parainfluenza virus 3 Current visit: No Status: Acute (4) CAD (coronary artery disease) Current visit: No Status: Chronic (5) CHF (congestive heart failure) Current visit: No Status: Chronic 09/05/16 10:03 pEF. Marked pulmionary HTN. (6) Chronic steroid use Current visit: No Status: Chronic (7) Leukocytosis Problem details: POA Current visit: Yes Status: Resolved (8) Hypoxia Current visit: Yes Status: Acute 09/01/16 16:01 Baseline oxygen 1-2 liters. Currently requiring 8 liters on admission (9) RA (rheumatoid arthritis) Current visit: Yes Status: Chronic (10) At high risk for aspiration Current visit: Yes Status: Acute (11) H/O small bowel obstruction Current visit: Yes Status: Acute 09/05/16 10:06 Seen in the past by Dr. Johnson (12) History of cystostomy Current visit: No Status: Chronic (13) Bladder cancer Current visit: No Status: Chronic (14) Nausea Current visit: Yes Status: Acute Assessment and Plan: MARIA ELENA bacteremia Severe sepsis Acute hypoxic respiratory failure Parainfluenza 3 bronchitis Coronary artery disease CHF Rheumatoid arthritis History of bladder cancer/cystectomy/ileal bladder Transaminitis Nausea Constipation Day 8 vancomycin for MARIA ELENA bacteremia. Could consider alternate antibiotic however anticipate return to nursing facility to complete antibiotics and daily dosing of vancomycin will be preferred. Has PICC line in right upper extremity. Echo obtained 09/06 to exclude vegetations-report pending. Will discuss with cardiology today. Repeat blood cultures negative on 09/03 and will need 2 weeks therapy from that date (09/16). Sons prefer to avoid sedation with LISSY unless absolutely necessary. Residual cough but appears significantly improved from recent hospitalization when viral infection identified. Prednisone tapered to 40 mg daily. Chest x-ray remains unremarkable and oxygenation improved from baseline. Patient received 5 days of cefepime for pseudomonas in the urine and possible respiratory source. Discontinued in part due to elevated transaminases. Recheck LFTs in a.m. Blood pressure remains elevated-losartan initiated at 50 mg daily. Persistent nausea although maintaining oral intake. Noted to be on scheduled Zofran 3 times daily as an outpatient-resumed. Constipation resolved. PT/OT to see, up in chair as tolerates. Patient remains reluctant to be out of bed for more than very short time intervals. Discussed with nursing, Dr. Merino, chest x-ray reviewed by myself, laboratory data reviewed/ordered. Sepsis Assessment - Evaluation Sepsis screening result: No Definite Risk Hospital Course Summary Disclaimer: The visit summary below is not to be considered part of the above Progress Note. Hospital Course: 09/01/16 Admit patient to inpatient status under the care of Dr. Forbes for sepsis, increased respiratory distress with hypoxia. Again, patient does meet criteria for sepsis as previously mentioned. Initial venous lactate was normal, will recheck at 1530 as per sepsis protocol. Cover patient with cefepime, Levaquin and vancomycin for antimicrobial coverage. Blood cultures pending. Consult with restricted therapy, oxygen administration and when necessary suctioning. Will encourage use of Acapella 4 times a day. Scheduled DuoNeb 4 times a day as well as Pulmicort twice a day. Increase from baseline prednisone to Solu-Medrol 125 grams IV every 6 hours to help with pulmonary inflammation and wheezing. Continue with home dose of Lasix 40 grams daily for gentle diuresis. Monitor on her patient cardiac telemetry. Resume patient's home medication. Recheck CBC and BMP tomorrow morning to follow blood counts, renal function and electrolytes. Patient does request to be a do not resuscitate. At time of discharge medical care will return to primary care provider, Dr. Merino 09/02 WBC with decrease despite steroid use - likely see increase in WBC tomorrow. MAP preserved. HR normal. 1 of 2 BC positive for Staph aureus. With positive BC - will recheck cultures. Start Nozin due to positive Staph aureus. Continue cefepime, levofloxacin, and vancomycin for pulmonary coverage. Will place PICC line due to poor IV access and need for vancomycin. Continue with supplemental O2 - O2 needs still above baseline. Solu-Medrol, Neb treatments, Mucinex DM, and acapella to help loosen secretions. Speech to check swallow to make sure dysphagia not contributing to respiratory symptoms. PT/OT to see tomorrow to help strength - do not feel pt is ready to attempt therapy activities today. Recheck CXR in am. BMP and CBC in am due to sepsis and medication use. 09/03/16 Continue cefepime, levofloxacin, and vancomycin for pulmonary coverage. Repeat BC from this am pending. C/S from positive BC from admit pending. Decrease Solu-Medrol to 62.5mg IV q 6 hours. Continue with supplemental O2 - O2 needs still above baseline. Continue Neb treatments, Mucinex DM, and acapella to help loosen secretions. Speech to check swallow to make sure dysphagia not contributing to respiratory symptoms. PT/OT as able to help improve strength. Repeat CXR not showing infiltrate. BMP and CBC in am due to sepsis and medication use. 09/04/16 Clinically improving. Breathing improving. Mentation doing well. Continue cefepime and vancomycin for coverage - can stop levofloxacin. Initial BC with MARIA ELENA in 1 of 2 bottles. Repeat BC with no growth. Continue Solu-Medrol 62.5mg IV q 6 hours. Wean O2 as able. Continue Neb treatments, Mucinex DM, and acapella to help loosen secretions. Speech finding no dysphagia - recommends soft diet to make eating easier. Encourage activities as pt able. BMP and CBC in am due to sepsis and medication use. 09/05/16 10:19 *URI, Parainfluenza with acute respiratory insufficiency- Weaning steroids. Hx of presbyesophagus, and given cough post PO intake, concern she is aspirating. Will obtain CXR now and consult ST to see her tomorrow. Continue IV steroids, abx, nebs-Duoneb and Pulmicort. Give Lasix IV x 1 now in addition to PO Lasix- sounds to be a bit wet. Echo did show significant pHTN and diastolic dysfunction Cover with broad spectrum antibiotics for empiric coverage. *Abdominal distention- Hx of bladder CA, known intra-abdominal hernia. Past SBO. Dr. Johnson has seen in the past. Get CT of abdomen w/o contrast now. IV Zofran. Monitor. If she starts vomiting, make NPO. *Bacteruria- Enterococcus Fecaelis;PSA- Cefepime and Vanco for pulm. coverage. *RA, Chronic steroid use; Arava High risk for severe infection. Continue antibiotics. *HTN-Norvasc, Lasix *Acute anemia- HGB slowly trending down. Continue to monitor daily labs. Continue PPI for GI protection. 09/06/16 Overall respiratory status appears to be improving Continue on oxygen therapy along with schedule breathing treatments. Cefepime and vancomycin for antimicrobial coverage. Second set of blood cultures from 09/03 are negative. 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 Steroids converted to oral dose of prednisone 60 milligrams daily for ongoing pulmonary inflammation Blood pressure appears to be elevated. Currently on Norvasc and lasix. Will discuss further management with attending Continue with senna plus, MiraLAX for ongoing bowel motivation. No evidence of obstruction or ileus on CT scan. Speech therapy to evaluate swallow Reviewed morning labs. Potassium slightly down at 3.4-supplement increased, and LFTs elevated today-cefepime discontinued. Echocardiogram ordered after lengthy discussion with patient's sons to evaluate valves in light of MARIA ELENA bacteremia. 09/07/16 16:30 Day 7 vancomycin for MARIA ELENA bacteremia. Could consider alternate antibiotic however anticipate return to nursing facility to complete antibiotics and daily dosing of vancomycin will be preferred. Has PICC line in right upper extremity. Echo obtained yesterday to exclude vegetations-report pending. Repeat blood cultures negative on 09/03 and will need 2 weeks therapy from that date. Sons prefer to avoid sedation with LISSY unless absolutely necessary. Residual cough but appears significantly improved from recent hospitalization when viral infection identified. Taper prednisone to 40 mg daily. Chest x-ray in a.m. Patient received 5 days of cefepime for pseudomonas in the urine and possible respiratory source. Discontinued in part due to elevated transaminases. Monitor liver enzymes again in several days. Reassess blood pressure as steroid dose tapered. Borderline hypokalemia present yesterday-improved with additional supplement given yesterday. Continue to monitor. Senokot S added to regimen for constipation, Dulcolax suppository to be given today. PT/OT to see, up in chair as tolerates. Nursing reports patient refuses to get out of bed other than up to commode. 09/08/16 11:21 Day 8 vancomycin for MARIA ELENA bacteremia. Could consider alternate antibiotic however anticipate return to nursing facility to complete antibiotics and daily dosing of vancomycin will be preferred. Has PICC line in right upper extremity. Echo obtained 09/06 to exclude vegetations-report pending. Will discuss with cardiology today. Repeat blood cultures negative on 09/03 and will need 2 weeks therapy from that date (09/16). Sons prefer to avoid sedation with LISSY unless absolutely necessary. Residual cough but appears significantly improved from recent hospitalization when viral infection identified. Prednisone tapered to 40 mg daily. Chest x-ray remains unremarkable and oxygenation improved from baseline. Patient received 5 days of cefepime for pseudomonas in the urine and possible respiratory source. Discontinued in part due to elevated transaminases. Recheck LFTs in a.m. Blood pressure remains elevated-losartan initiated at 50 mg daily. Persistent nausea although maintaining oral intake. Noted to be on scheduled Zofran 3 times daily as an outpatient-resumed. Constipation resolved. PT/OT to see, up in chair as tolerates. Patient remains reluctant to be out of bed for more than very short time intervals.
[2016-09-08] MEDS: LOSARTAN 50 MG TABLET PO SCH (12:48)
[2016-09-08] MEDS: HYDROCODONE/APAP 10 MG/325 MG TABLET PO SCH ×3 (12:49→18:38)
--- NOTE | 2016-09-08 13:45 | Echocardiogram ---
DATE OF PROCEDURE September 06, [address] Librado Forbes This is a two-dimensional echo with spectral Doppler, color-flow and M-mode. It was obtained in a patient with bacteremia. Left atrial dimension is normal. Left ventricle end-diastolic dimension is normal. Left ventricle wall thickness is normal. LV systolic function is normal with ejection fraction of 60%. Right atrium is normal. Right ventricle is normal. Aortic root dimension is normal. Mitral valve is morphologically normal with mild mitral regurgitation. Aortic valve shows mild fibrocalcific changes with no stenosis or insufficiency. Tricuspid valve shows no tricuspid regurgitation. Pulmonary valve shows trace of pulmonary insufficiency. There is no pericardial effusion. Grossly, there is no evidence of vegetations. IMPRESSION 1. Normal LV systolic function with ejection fraction of 60%. 2. Mild mitral regurgitation. 3. Aortic sclerosis. 4. Trace of pulmonary insufficiency. 5. Grossly no evidence of vegetations. [facility]
[2016-09-08] MEDS: ONDANSETRON 4 MG TABLET PO SCH ×2 (14:40→20:55)
[2016-09-08] MEDS: SALINE FLUSH 10ml SYRINGE IV PRN (20:53)
[2016-09-08] MEDS: GABAPENTIN 100 MG CAPSULE PO SCH (21:47)
[2016-09-08] MEDS: MIRTAZAPINE 15 MG TABLET PO SCH (21:47)
[2016-09-09] MEDS: OXYCODONE 40 MG PO SCH ×2 (01:59→14:17)
[2016-09-09] MEDS: OMEPRAZOLE 20 MG CAPSULE PO SCH (06:25)
[2016-09-09] MEDS: NOZIN NASAL SWAB NAS SCH ×3 (06:25→21:26)
[2016-09-09] MEDS: SALINE FLUSH 10ml SYRINGE IV PRN ×3 (06:48→21:25)
[2016-09-09] MEDS: ALBUTEROL/IPRATROPIUM 2.5mg-0.5mg/3ml NEB IH SCH ×4 (07:55→19:47)
[2016-09-09] MEDS: BUDESONIDE INH.SOLN 0.5mg/2ml NEB AEROSOL SCH ×2 (07:55→19:47)
[2016-09-09] MEDS: POLYETHYL GLYCOL 3350 17gm PACKET PO SCH (08:35)
[2016-09-09] MEDS: ACETAMINOPHEN 325 MG TABLET PO SCH (08:36)
[2016-09-09] MEDS: PredniSONE 20 MG TABLET PO SCH (08:36)
[2016-09-09] MEDS: ONDANSETRON 4 MG TABLET PO SCH ×3 (08:37→21:25)
[2016-09-09] MEDS: FUROSEMIDE 40 MG TABLET PO SCH (08:37)
[2016-09-09] MEDS: CALCIUM CARBONATE Chewable 500mg TABLET PO SCH ×2 (08:37→20:23)
[2016-09-09] MEDS: LOSARTAN 50 MG TABLET PO SCH (08:37)
[2016-09-09] MEDS: GUAIFENESIN/D-METHORPHAN 600mg/30mg TABLET PO SCH ×2 (08:37→21:26)
[2016-09-09] MEDS: LEFLUNOMIDE 10 MG TABLET PO SCH (08:37)
[2016-09-09] MEDS: SENNA + DOCUSATE TABLET PO SCH ×3 (08:38→21:25)
[2016-09-09] MEDS: AMLODIPINE 10 MG TABLET PO SCH (08:38)
[2016-09-09] MEDS: MAG-AL + SIM ORAL LIQUID 30ml PO SCH ×2 (09:55→20:23)
--- NOTE | 2016-09-09 11:42 | Progress Note ---
Subjective: Mrs. Boyd reports that she is slightly nauseated today although nursing reports that she ate well. She has usual achiness but cough is better and she denied significant dyspnea. She is weak but had no specific new concerns. She was pleased to learn that she's going home. Objective Vital signs: Temperature 97.2 F 09/09/16 07:23 Pulse Rate 71 09/09/16 08:00 Respiratory Rate 16 09/09/16 11:26 Blood Pressure 159/80 H 09/09/16 07:23 Pulse Oximetry 95 09/09/16 11:26 Oxygen Delivery Method Nasal Cannula Oxygen Flow Rate 3 I/O 3230/2475; 2980 mL oral intake yesterday EXAM General-NAD, resting when I arrived but awakens easily to voice and responds appropriately, very hard of hearing HEENT-conjunctiva clear, sclera anicteric Lungs-respirations nonlabored, decreased inspiratory effort. Breath sounds clear Abd-soft, nontender, diminished bowel sounds Ext-without edema Psych-calm, cooperative - Weight: 79.1 kg Results - Labs CBC & Chem 7: 09/09/16 04:29 09/09/16 04:29 Labs: AST 26, ALT 111-both significantly improved from prior testing; bilirubin/ alkaline phosphatase normal Microbiology Results: Microbiology 09/03/16 04:42 Peripheral/Iv Start Blood Culture - Final No Growth After 5 Days 09/03/16 04:54 Peripheral/Iv Start Blood Culture - Final No Growth After 5 Days Assessment and Plan (1) Bacteremia Current visit: Yes Status: Acute 09/06/16 15:55 MARIA ELENA 1/2 BC on 09/01 (2) Sepsis Current visit: Yes Status: Resolved Manifestations of severe sepsis include the following 1. Known respiratory illness (see parainfluenza 3) 2. Leukocytosis. Next, and 3. Fever. 4. Heart rate greater than 90. 5. Tachypnea 6. Increased O2 demand 09/02/16 12:26 1 of 2 BC positive for Staph aureus (3) Infection due to parainfluenza virus 3 Current visit: No Status: Acute (4) CAD (coronary artery disease) Current visit: No Status: Chronic (5) CHF (congestive heart failure) Current visit: No Status: Chronic 09/05/16 10:03 pEF. Marked pulmionary HTN. (6) Chronic steroid use Current visit: No Status: Chronic (7) Leukocytosis Problem details: POA Current visit: Yes Status: Resolved (8) Hypoxia Current visit: Yes Status: Acute 09/01/16 16:01 Baseline oxygen 1-2 liters. Currently requiring 8 liters on admission (9) RA (rheumatoid arthritis) Current visit: Yes Status: Chronic (10) At high risk for aspiration Current visit: Yes Status: Acute (11) H/O small bowel obstruction Current visit: Yes Status: Acute 09/05/16 10:06 Seen in the past by Dr. Johnson (12) History of cystostomy Current visit: No Status: Chronic (13) Bladder cancer Current visit: No Status: Chronic (14) Nausea Current visit: Yes Status: Acute Assessment and Plan: MARIA ELENA bacteremia Severe sepsis Acute hypoxic respiratory failure Parainfluenza 3 bronchitis Coronary artery disease CHF Rheumatoid arthritis History of bladder cancer/cystectomy/ileal bladder Transaminitis Nausea Constipation Day 9 vancomycin for MARIA ELENA bacteremia. Could consider alternate antibiotic however anticipate return to nursing facility to complete antibiotics and daily dosing of vancomycin will be preferred. Has PICC line in right upper extremity. Echo obtained 09/06 ejection fraction 60%, mild mitral regurgitation, no evidence of vegetations by TTE. Repeat blood cultures negative on 09/03 and will need 2 weeks therapy from that date (09/16). Sons prefer to avoid sedation with LISSY unless absolutely necessary. Residual cough but appears significantly improved from recent hospitalization when viral infection identified. Prednisone tapered to 40 mg daily. Chest x-ray remains unremarkable and oxygenation improved from baseline. Patient received 5 days of cefepime for pseudomonas in the urine and possible respiratory source. Discontinued in part due to elevated transaminases. Liver enzymes improving over time/off cefepime. Blood pressure remains elevated-losartan initiated at 50 mg daily. Continue to monitor blood pressure on losartan. Mild nausea-continue scheduled Zofran. Constipation resolved. PT/OT evaluation yesterday-patient is unsafe for independent activities (has required one-person assistance for transfers in the past)-patient being discharged to detention for IV antibiotics and will continue PT/OT in that environment. Sepsis Assessment - Evaluation Sepsis screening result: No Definite Risk Hospital Course Summary Disclaimer: The visit summary below is not to be considered part of the above Progress Note. Hospital Course: 09/01/16 Admit patient to inpatient status under the care of Dr. Forbes for sepsis, increased respiratory distress with hypoxia. Again, patient does meet criteria for sepsis as previously mentioned. Initial venous lactate was normal, will recheck at 1530 as per sepsis protocol. Cover patient with cefepime, Levaquin and vancomycin for antimicrobial coverage. Blood cultures pending. Consult with restricted therapy, oxygen administration and when necessary suctioning. Will encourage use of Acapella 4 times a day. Scheduled DuoNeb 4 times a day as well as Pulmicort twice a day. Increase from baseline prednisone to Solu-Medrol 125 grams IV every 6 hours to help with pulmonary inflammation and wheezing. Continue with home dose of Lasix 40 grams daily for gentle diuresis. Monitor on her patient cardiac telemetry. Resume patient's home medication. Recheck CBC and BMP tomorrow morning to follow blood counts, renal function and electrolytes. Patient does request to be a do not resuscitate. At time of discharge medical care will return to primary care provider, Dr. Merino 09/02 WBC with decrease despite steroid use - likely see increase in WBC tomorrow. MAP preserved. HR normal. 1 of 2 BC positive for Staph aureus. With positive BC - will recheck cultures. Start Nozin due to positive Staph aureus. Continue cefepime, levofloxacin, and vancomycin for pulmonary coverage. Will place PICC line due to poor IV access and need for vancomycin. Continue with supplemental O2 - O2 needs still above baseline. Solu-Medrol, Neb treatments, Mucinex DM, and acapella to help loosen secretions. Speech to check swallow to make sure dysphagia not contributing to respiratory symptoms. PT/OT to see tomorrow to help strength - do not feel pt is ready to attempt therapy activities today. Recheck CXR in am. BMP and CBC in am due to sepsis and medication use. 09/03/16 Continue cefepime, levofloxacin, and vancomycin for pulmonary coverage. Repeat BC from this am pending. C/S from positive BC from admit pending. Decrease Solu-Medrol to 62.5mg IV q 6 hours. Continue with supplemental O2 - O2 needs still above baseline. Continue Neb treatments, Mucinex DM, and acapella to help loosen secretions. Speech to check swallow to make sure dysphagia not contributing to respiratory symptoms. PT/OT as able to help improve strength. Repeat CXR not showing infiltrate. BMP and CBC in am due to sepsis and medication use. 09/04/16 Clinically improving. Breathing improving. Mentation doing well. Continue cefepime and vancomycin for coverage - can stop levofloxacin. Initial BC with MARIA ELENA in 1 of 2 bottles. Repeat BC with no growth. Continue Solu-Medrol 62.5mg IV q 6 hours. Wean O2 as able. Continue Neb treatments, Mucinex DM, and acapella to help loosen secretions. Speech finding no dysphagia - recommends soft diet to make eating easier. Encourage activities as pt able. BMP and CBC in am due to sepsis and medication use. 09/05/16 10:19 *URI, Parainfluenza with acute respiratory insufficiency- Weaning steroids. Hx of presbyesophagus, and given cough post PO intake, concern she is aspirating. Will obtain CXR now and consult ST to see her tomorrow. Continue IV steroids, abx, nebs-Duoneb and Pulmicort. Give Lasix IV x 1 now in addition to PO Lasix- sounds to be a bit wet. Echo did show significant pHTN and diastolic dysfunction Cover with broad spectrum antibiotics for empiric coverage. *Abdominal distention- Hx of bladder CA, known intra-abdominal hernia. Past SBO. Dr. Johnson has seen in the past. Get CT of abdomen w/o contrast now. IV Zofran. Monitor. If she starts vomiting, make NPO. *Bacteruria- Enterococcus Fecaelis;PSA- Cefepime and Vanco for pulm. coverage. *RA, Chronic steroid use; Arava High risk for severe infection. Continue antibiotics. *HTN-Norvasc, Lasix *Acute anemia- HGB slowly trending down. Continue to monitor daily labs. Continue PPI for GI protection. 09/06/16 Overall respiratory status appears to be improving Continue on oxygen therapy along with schedule breathing treatments. Cefepime and vancomycin for antimicrobial coverage. Second set of blood cultures from 09/03 are negative. Will possibly need alf antibiotics. Steroids converted to oral dose of prednisone 60 milligrams daily for ongoing pulmonary inflammation Blood pressure appears to be elevated. Currently on Norvasc and lasix. Will discuss further management with attending Continue with senna plus, MiraLAX for ongoing bowel motivation. No evidence of obstruction or ileus on CT scan. Speech therapy to evaluate swallow Reviewed morning labs. Potassium slightly down at 3.4-supplement increased, and LFTs elevated today-cefepime discontinued. Echocardiogram ordered after lengthy discussion with patient's sons to evaluate valves in light of MARIA ELENA bacteremia. 09/07/16 16:30 Day 7 vancomycin for MARIA ELENA bacteremia. Could consider alternate antibiotic however anticipate return to nursing facility to complete antibiotics and daily dosing of vancomycin will be preferred. Has PICC line in right upper extremity. Echo obtained yesterday to exclude vegetations-report pending. Repeat blood cultures negative on 09/03 and will need 2 weeks therapy from that date. Sons prefer to avoid sedation with LISSY unless absolutely necessary. Residual cough but appears significantly improved from recent hospitalization when viral infection identified. Taper prednisone to 40 mg daily. Chest x-ray in a.m. Patient received 5 days of cefepime for pseudomonas in the urine and possible respiratory source. Discontinued in part due to elevated transaminases. Monitor liver enzymes again in several days. Reassess blood pressure as steroid dose tapered. Borderline hypokalemia present yesterday-improved with additional supplement given yesterday. Continue to monitor. Senokot S added to regimen for constipation, Dulcolax suppository to be given today. PT/OT to see, up in chair as tolerates. Nursing reports patient refuses to get out of bed other than up to commode. 09/08/16 11:21 Day 8 vancomycin for MARIA ELENA bacteremia. Could consider alternate antibiotic however anticipate return to nursing facility to complete antibiotics and daily dosing of vancomycin will be preferred. Has PICC line in right upper extremity. Echo obtained 09/06 to exclude vegetations-report pending. Will discuss with cardiology today. Repeat blood cultures negative on 09/03 and will need 2 weeks therapy from that date (09/16). Sons prefer to avoid sedation with LISSY unless absolutely necessary. Residual cough but appears significantly improved from recent hospitalization when viral infection identified. Prednisone tapered to 40 mg daily. Chest x-ray remains unremarkable and oxygenation improved from baseline. Patient received 5 days of cefepime for pseudomonas in the urine and possible respiratory source. Discontinued in part due to elevated transaminases. Recheck LFTs in a.m. Blood pressure remains elevated-losartan initiated at 50 mg daily. Persistent nausea although maintaining oral intake. Noted to be on scheduled Zofran 3 times daily as an outpatient-resumed. Constipation resolved. PT/OT to see, up in chair as tolerates. Patient remains reluctant to be out of bed for more than very short time intervals.
--- NOTE | 2016-09-09 12:00 | Discharge Instructions ---
Discharge Plan - Med Rec/Dispo Referrals/Follow Up: Yolanda Merino MD [Family Provider] - [place] Instructions: Dyspnea (GEN) Prescriptions: New Losartan [Cozaar] 50 mg PO DAILY tablet PredniSONE [Deltasone] 40 mg PO WB tablet Budesonide Inhalation [Pulmicort Inhalation] 0.5 mg AEROSOL RTBID #20 vial Guaifenesin/Dm [Mucinex Dm] 1 tab PO BID PRN #0 tab.er.12h PRN Reason: Cough /Congestion Vancomycin/0.9 % Sod Chloride [Vanco 1.25 gm/250 ml-0.9% NaCl] 1.25 gm IV DAILY #7 plast..bag Continue Hydrocodone/Acetaminophen [Hydrocodon-Acetaminophn 10-325] 1 tab PO Q6H PRN # 20 tablet PRN Reason: Pain Oxycodone Cr [OxyCONTIN] 40 mg PO Q12H #30 tablet No Action Leflunomide [Arava] 20 mg PO DAILY #0 Acetaminophen 650 mg PO Q4H PRN PRN Reason: Pain Hydrocodone/Acetaminophen [Hydrocodon-Acetaminophn 10-325] 1 tab PO Q6H PRN PRN Reason: Pain Mag Hydrox/Aluminum Hyd/Simeth [Maalox Advanced Suspension] 30 ml PO Q2H PRN PRN Reason: Heartburn Nitroglycerin [Nitrostat] 0.4 mg SL Q5MIN3 PRN PRN Reason: Chest Pain Magnesium Hydroxide [Milk of Magnesia] 30 mg PO DAILY PRN PRN Reason: Constipation Mag Hydrox/Aluminum Hyd/Simeth [Maalox Advanced Suspension] 30 ml PO BID Acetaminophen 650 mg PO DAILY Polyethylene Glycol 3350 [Miralax] 17 gm PO DAILY Oxycodone Cr [OxyCONTIN] 40 mg PO Q12H Potassium Chloride ER Tab [K-Dur] 20 meq PO DAILY CALCIUM CARBONATE Chewable [Tums] 500 mg PO BID Albuterol/Ipratropium [Duoneb] 3 ml IH RTQID ampul PredniSONE [Deltasone] 20 mg PO WB Azithromycin [Zithromax] 250 mg PO DAILY Amlodipine Besylate 10 mg PO DAILY #0 Furosemide [Lasix] 40 mg PO DAILY #0 Sennosides/Docusate Sodium [Senna S Tablet] 1 tab PO BIDBS #0 Mirtazapine [Remeron] 7.5 mg PO HS #0 Hydrocodone/APAP 10/325 [[place]isade 10/325] 1 tab PO BIDLS #0 Ondansetron HCl [Zofran] 4 mg PO TID #0 Loratadine 10 mg PO DAILY PRN #0 PRN Reason: Rhinitis Omeprazole 20 mg PO DAILY #0 cap Guaifenesin/Dextromethorphan [Guaifenesin Dm Syrup] 10 ml PO Q4H PRN PRN Reason: Cough Famotidine [Pepcid] 20 mg PO HS PRN PRN Reason: Heartburn Gabapentin [Neurontin] 200 mg PO HS Discharge Instructions/Outpatient Orders: Final Provider Discharge Instructions Location: Determined By Patient - Disposition 03 To [facility] ([facility])
[2016-09-09] MEDS: HYDROCODONE/APAP 10 MG/325 MG TABLET PO SCH ×2 (12:18→16:30)
--- NOTE | 2016-09-09 14:00 | Pharmacy Consult-Antibiotics ---
Pharmacy Consult-Vancomycin - Laboratory Information WBC 10.3 T/MM3 (4.5-11.0) 09/09/16 04:29 BUN 35.0 MG/DL (7-17) H 09/09/16 04:29 Creatinine 0.8 MG/DL (0.7-1.2) 09/09/16 13:09 Procalcitonin 0.14 NG/ML 09/01/16 11:15 Vancomycin Trough 15.54 UG/ML (15-20) 09/09/16 13:09 - Consult Information Vancomycin trough today acceptable at 15.5 mcg/ml. Would recommend vancomycin 1250mg IV q24h with the next trough in about 5 days. Thank you.
[2016-09-09 19:50] VITALS: RESP 16
[2016-09-09] MEDS: MIRTAZAPINE 15 MG TABLET PO SCH (21:26)
[2016-09-09] MEDS: GABAPENTIN 100 MG CAPSULE PO SCH (21:26)
[2016-09-10] MEDS: OXYCODONE 40 MG PO SCH ×2 (02:09→13:56)
[2016-09-10] MEDS: OMEPRAZOLE 20 MG CAPSULE PO SCH (06:06)
[2016-09-10] MEDS: NOZIN NASAL SWAB NAS SCH ×2 (06:07→13:56)
[2016-09-10] MEDS: ALBUTEROL/IPRATROPIUM 2.5mg-0.5mg/3ml NEB IH SCH ×3 (07:35→15:47)
[2016-09-10] MEDS: BUDESONIDE INH.SOLN 0.5mg/2ml NEB AEROSOL SCH (07:35)
[2016-09-10 08:03] VITALS: BP 145/69; PULSE 84; TEMP 97.1
[2016-09-10] MEDS: GUAIFENESIN/D-METHORPHAN 600mg/30mg TABLET PO SCH (08:45)
[2016-09-10] MEDS: LEFLUNOMIDE 10 MG TABLET PO SCH (08:45)
[2016-09-10] MEDS: CALCIUM CARBONATE Chewable 500mg TABLET PO SCH (08:45)
[2016-09-10] MEDS: ACETAMINOPHEN 325 MG TABLET PO SCH (08:46)
[2016-09-10] MEDS: SENNA + DOCUSATE TABLET PO SCH (08:47)
[2016-09-10] MEDS: PredniSONE 20 MG TABLET PO SCH (08:47)
[2016-09-10] MEDS: ONDANSETRON 4 MG TABLET PO SCH ×2 (08:47→14:48)
[2016-09-10] MEDS: AMLODIPINE 10 MG TABLET PO SCH (08:48)
[2016-09-10] MEDS: FUROSEMIDE 40 MG TABLET PO SCH (08:48)
[2016-09-10] MEDS: POLYETHYL GLYCOL 3350 17gm PACKET PO SCH (08:49)
[2016-09-10] MEDS: LOSARTAN 50 MG TABLET PO SCH (08:49)
[2016-09-10] MEDS: MAG-AL + SIM ORAL LIQUID 30ml PO SCH (10:43)
[2016-09-10 11:55] VITALS: O2SAT 92
--- NOTE | 2016-09-10 12:02 | Discharge Instructions ---
Discharge Plan - Med Rec/Dispo Referrals/Follow Up: Yolanda Merino MD [Family Provider] - [place] Instructions: Dyspnea (GEN) Prescriptions: New Losartan [Cozaar] 50 mg PO DAILY tablet PredniSONE [Deltasone] 40 mg PO WB tablet Budesonide Inhalation [Pulmicort Inhalation] 0.5 mg AEROSOL RTBID #20 vial Guaifenesin/Dm [Mucinex Dm] 1 tab PO BID PRN #0 tab.er.12h PRN Reason: Cough /Congestion Vancomycin/0.9 % Sod Chloride [Vanco 1.25 gm/250 ml-0.9% NaCl] 1.25 gm IV DAILY #7 plast..bag Continue Hydrocodone/Acetaminophen [Hydrocodon-Acetaminophn 10-325] 1 tab PO Q6H PRN # 20 tablet PRN Reason: Pain Oxycodone Cr [OxyCONTIN] 40 mg PO Q12H #30 tablet No Action Leflunomide [Arava] 20 mg PO DAILY #0 Acetaminophen 650 mg PO Q4H PRN PRN Reason: Pain Hydrocodone/Acetaminophen [Hydrocodon-Acetaminophn 10-325] 1 tab PO Q6H PRN PRN Reason: Pain Mag Hydrox/Aluminum Hyd/Simeth [Maalox Advanced Suspension] 30 ml PO Q2H PRN PRN Reason: Heartburn Nitroglycerin [Nitrostat] 0.4 mg SL Q5MIN3 PRN PRN Reason: Chest Pain Magnesium Hydroxide [Milk of Magnesia] 30 mg PO DAILY PRN PRN Reason: Constipation Mag Hydrox/Aluminum Hyd/Simeth [Maalox Advanced Suspension] 30 ml PO BID Acetaminophen 650 mg PO DAILY Polyethylene Glycol 3350 [Miralax] 17 gm PO DAILY Oxycodone Cr [OxyCONTIN] 40 mg PO Q12H Potassium Chloride ER Tab [K-Dur] 20 meq PO DAILY CALCIUM CARBONATE Chewable [Tums] 500 mg PO BID Albuterol/Ipratropium [Duoneb] 3 ml IH RTQID ampul PredniSONE [Deltasone] 20 mg PO WB Azithromycin [Zithromax] 250 mg PO DAILY Amlodipine Besylate 10 mg PO DAILY #0 Furosemide [Lasix] 40 mg PO DAILY #0 Sennosides/Docusate Sodium [Senna S Tablet] 1 tab PO BIDBS #0 Mirtazapine [Remeron] 7.5 mg PO HS #0 Hydrocodone/APAP 10/325 [[place] 10/325] 1 tab PO BIDLS #0 Ondansetron HCl [Zofran] 4 mg PO TID #0 Loratadine 10 mg PO DAILY PRN #0 PRN Reason: Rhinitis Omeprazole 20 mg PO DAILY #0 cap Guaifenesin/Dextromethorphan [Guaifenesin Dm Syrup] 10 ml PO Q4H PRN PRN Reason: Cough Famotidine [Pepcid] 20 mg PO HS PRN PRN Reason: Heartburn Gabapentin [Neurontin] 200 mg PO HS Discharge Instructions/Outpatient Orders: Final Provider Discharge Instructions Location: Determined By Patient - Disposition 01 Discharged Home, Self-Care
[2016-09-10] MEDS: HYDROCODONE/APAP 10 MG/325 MG TABLET PO SCH (12:24)
--- NOTE | 2016-09-10 15:32 | Extended Care Facility Orders ---
Admission Orders Admit to:: Half-Way Allergies/Adverse Reactions: Allergies propoxyphene Allergy (Severe, Verified 09/01/16 10:56) HYPOTENSION codeine Allergy (Unknown, Verified 09/01/16 10:56) methotrexate Allergy (Unknown, Verified 09/01/16 10:56) Admitting Diagnosis: dyspnea Admitting Physician: Arabella Brantley MD Attending Physician: Arabella Brantley MD Code Status: Do Not Resuscitate Anticiapted Length of Stay: 30 days or less Rehab Potential: fair Rehab Prognosis: fair Diet: Regular Diet, Aspiration risk. Please monitor regular liquids May use Facility Protocol or Standing Orders: Yes May have flu vaccine: Yes Evaluations/Treatment: Speech, PT, OT Half-Way Certification: I certify that SNF services are required to be given on an Inpatient basis because of the patients need for [facility] care on a continuing basis for the condition(s) for which he/she received inpatient hospital services prior to his/her transfer to the SNF. SNF inpatient care is necessary for the following reasons Indication for Half-Way: Teach COPD Management - Additional Information In Event of Arrest: Do Not Start CPR Resident is Aware of Diagnosis: Yes Referrals: Yolanda Merino MD [Family Provider] - 1 Week Additional Orders: continue Prednisone at 20 mg/day for 5 days then reduce to 10 mg/day for 10 days. Vancomycin 1.25 g IV daily 2 PM for 6 more days-last dose on 09/16/16 for oxacillin sensitive staph aureus bacteremia. CBC, CMP, vancomycin trough on Wednesday 09/13 to be drawn at 1:30 PM please. Diagnoses bacteremia, monitor medications, abnormal liver enzymes, CHF. Follow-up appointment with Dr. Merino in approximately one week. Supplemental oxygen at 3-4 L per nasal cannula, titrate to oxygen saturation > 90%. Continue ureterostomy care as in the past.
--- NOTE | 2016-09-10 21:57 | Discharge Summary ---
Discharge Information Date of admission: 09/01/16 13:25 Anticipated date of discharge: 09/10/16 Attending Physician: Arabella Brantley MD Primary care physician: Yolanda Merino MD Consults: - Discharge Diagnosis (1) Sepsis Qualifiers: Sepsis type: methicillin susceptible Staphylococcus aureus Qualified Code(s ): A41.01 - Sepsis due to Methicillin susceptible Staphylococcus aureus Status: Acute (2) Bacteremia Problem Details: MARIA ELENA Status: Acute (3) Hypoxia Status: Acute (4) Infection due to parainfluenza virus 3 Status: Acute (5) CAD (coronary artery disease) Status: Chronic (6) CHF (congestive heart failure) Status: Chronic (7) Chronic steroid use Status: Chronic (8) RA (rheumatoid arthritis) Qualifiers: Rheumatoid arthritis location: multiple sites Status: Chronic (9) At high risk for aspiration Status: Acute (10) History of cystostomy Status: Chronic (11) Nausea Status: Chronic - Procedures Procedures: Echocardiogram 09/06/16: 1. Normal LV systolic function with ejection fraction of 60%. 2. Mild mitral regurgitation. 3. Aortic sclerosis. 4. Trace of pulmonary insufficiency. 5. Grossly no evidence of vegetations. - Laboratory Labs: On admission white count was 16.1 with 73% neutrophils and 13% bands. Hemoglobin was 11.3. Admission chemistries unremarkable. Lactic acid 1.5 and procalcitonin 0.14. 09/09/16 04:29 09/09/16 13:09 Vancomycin trough on 09/09/16 on dose of 1.25 g every 24 hours-15.54 - Microbiology Microbiology 09/03/16 04:42 Peripheral/Iv Start Blood Culture - Final No Growth After 5 Days 09/03/16 04:54 Peripheral/Iv Start Blood Culture - Final No Growth After 5 Days - Radiology Radiology: Chest x-ray on admission demonstrated no acute disease, follow-up films on 09/03 demonstrated no change in the lungs and good positioning of right PICC, and final chest x-ray on 09/[address] of the abdomen and pelvis on 09/05 revealed consolidation/atelectasis of the right lower lobe, absent gallbladder, fatty replacement of the pancreas, bilateral cortical thinning without hydronephrosis. Prior cyst deck to ok with ileal conduit bladder. There is a large left abdominal and pelvic parastomal hernia containing multiple nonobstructive loops of small bowel. No acute intra- abdominal or pelvic pathology present. History of Present Illness HPI: Genesis is a pleasant 89-year-old female who is well known to the hospitalist services as she was recently admitted on 08/27 with a sirs and respiratory difficulty. She was found to have parainfluenza 3 respiratory virus. She was discharged to [facility] on 08/28 for continued oxygen therapy as as well as scheduled breathing treatments and supportive care. She reports that overnight her breathing got significantly worse and she started having increase in coughing. Due to this change in her status, she was brought back to the emergency room today for reevaluation. WBC count was found to be elevated at 16.1, hemoglobin 11.3, hematocrit 39.3, platelet count 371, neutrophils 73% with 13% bandemia. Sodium is elevated at 145 , potassium 4.2, BUN 21, creatinine 0.8. Glucose is 163, proBNP 336. Troponin was negative. Venous lactate is normal at 1.3, pro calcitonin 0.14. Analysis is obtained showing positive nitrates with 5-10 WBCs and 1+ bacteria, however, patient does have a chronic urostomy. A chest x-ray was obtained that did not show any acute cardiopulmonary findings. Patient does use oxygen chronically and it is thought that she is likely on 1-2 liters. On arrival to the emergency room. She is requiring 8 liters of oxygen by nasal cannula to maintain saturations. Heart rate initially 95. She was also initially tachypnea breathing 26 times a minute. Blood pressure has been stable 162/81. Based on these findings. Patient does meet crit criteria for sepsis given known respiratory illness, fever of 100.6, tachycardia 95, tachypnea 26 per minute with leukocytosis. Hospital services were contacted and accepted patient for inpatient mission for further evaluation and treatment Hospital Course This is a general summary of the patient's hospital course. For more details refer to the complete medical record. Hospital course: Mrs. Boyd was admitted on 09/01/16 under the care of Dr. Forbes for severe sepsis with increased respiratory distress with hypoxia. Broad spectrum antibiotics were initiated with cefepime, Levaquin and vancomycin pending blood cultures. On the second hospital day blood cultures were positive for staph aureus. PICC line was placed due to poor venous access. Staph aureus was subsequently demonstrated to be oxacillin sensitive. Levaquin was discontinued but the patient remained on cefepime and vancomycin for treatment of Pseudomonas in her urine (probable colonization but given severity of illness on presentation treatment felt warranted) and staph aureus bacteremia. Cefepime was discontinued after 5 days therapy. Blood cultures were repeated on 09/03 and were negative at that time. 2 weeks antibiotics following negative blood cultures is recommended for management of bacteremia. Ultimately arrangements were made for completion of vancomycin at the patient's nursing facility under the care of Dr. Merino. It was elected to continue vancomycin which could be dosed daily rather than converting to Ancef 3 times daily to permit administration in the nursing facility. LISSY was considered for evaluation of bacteremia family expressed concern about risk of sedation and it was elected to obtain a transthoracic echo which revealed no obvious deformity of valves. Echo also demonstrated pulmonary hypertension and diastolic dysfunction. Increased oxygen flow from baseline was needed on admission for hypoxia and breathing treatments, suctioning, and acapella valve initiated. There was no evidence of acute pulmonary pathology on chest x-ray. She been on prednisone prior to admission for viral pneumonitis/bronchitis but was converted to high- dose steroids with Solu-Medrol for pulmonary inflammation. Hypoxia resolved over the first 48 hours and the patient returned to baseline 3-4 L supplemental oxygen for the remainder of the hospitalization. Ultimately hypoxia was attributed to severe sepsis present on admission. Cough improved progressively during the hospitalization and the patient was converted back to prednisone which was tapered to 20 mg prior to discharge. The patient was evaluated by speech therapy during the hospitalization, she was felt to be at risk for aspiration but aspiration was not demonstrated on evaluation. Transaminases increased during the hospitalization, possibly due to use of cefepime. When last assessed on 09/09 transaminases were nearly normal. PT/OT evaluation yesterday-patient is unsafe for independent activities (has required one-person assistance for transfers in the past)-patient being discharged to senior living for IV antibiotics and will continue PT/OT in that environment. Discharge was coordinated for 09/10/16 at which time approval had been received for return to senior living and IV antibiotics in that facility. On the morning of the patient reported that cough was minimal and that she was having no dyspnea. She denied nausea on the morning of discharge in contrast to recent days. Respirations were nonlabored the patient was alert and cooperative. Breath sounds were slightly coarse. Patient does aware of plans for discharge to [facility] to continue IV antibiotics through 09/16. She'll need laboratory data repeated on Tuesday to monitor medication use and to check a vancomycin level. Vancomycin is being given at 2 PM daily and subsequently labs should be drawn 30-60 minutes prior to dose. Follow-up with Dr. Merino in approximately one week. >30 minutes spent on patient care and discharge care coordination today on the date of discharge. -- Discharge Plan - Med Rec/Dispo Referrals/Follow Up: Yolanda Merino MD [Family Provider] - [address] Week [address] Instructions: Dyspnea (GEN) Prescriptions: New Losartan [Cozaar] 50 mg PO DAILY tablet PredniSONE [Deltasone] 40 mg PO WB tablet Losartan [Cozaar] 50 mg PO DAILY #30 tab Budesonide Inhalation [Pulmicort Inhalation] 0.5 mg AEROSOL RTBID #20 vial Guaifenesin/Dm [Mucinex Dm] 1 tab PO BID PRN #0 tab.er.12h PRN Reason: Cough /Congestion Vancomycin/0.9 % Sod Chloride [Vanco 1.25 gm/250 ml-0.9% NaCl] 1.25 gm IV DAILY #7 plast..bag Continue Leflunomide [Arava] 20 mg PO DAILY #0 Acetaminophen 650 mg PO Q4H PRN PRN Reason: Pain Hydrocodone/Acetaminophen [Hydrocodon-Acetaminophn 10-325] 1 tab PO Q6H PRN PRN Reason: Pain Mag Hydrox/Aluminum Hyd/Simeth [Maalox Advanced Suspension] 30 ml PO Q2H PRN PRN Reason: Heartburn Nitroglycerin [Nitrostat] 0.4 mg SL Q5MIN3 PRN PRN Reason: Chest Pain Magnesium Hydroxide [Milk of Magnesia] 30 mg PO DAILY PRN PRN Reason: Constipation Mag Hydrox/Aluminum Hyd/Simeth [Maalox Advanced Suspension] 30 ml PO BID Acetaminophen 650 mg PO DAILY Polyethylene Glycol 3350 [Miralax] 17 gm PO DAILY Oxycodone Cr [OxyCONTIN] 40 mg PO Q12H Potassium Chloride ER Tab [K-Dur] 20 meq PO DAILY CALCIUM CARBONATE Chewable [Tums] 500 mg PO BID Albuterol/Ipratropium [Duoneb] 3 ml IH RTQID ampul Hydrocodone/Acetaminophen [Hydrocodon-Acetaminophn 10-325] 1 tab PO Q6H PRN # 20 tablet PRN Reason: Pain Oxycodone Cr [OxyCONTIN] 40 mg PO Q12H #30 tablet Amlodipine Besylate 10 mg PO DAILY #0 Furosemide [Lasix] 40 mg PO DAILY #0 Sennosides/Docusate Sodium [Senna S Tablet] 1 tab PO BIDBS #0 Mirtazapine [Remeron] 7.5 mg PO HS #0 Hydrocodone/APAP 10/325 [Brandon 10/325] 1 tab PO BIDLS #0 Ondansetron HCl [Zofran] 4 mg PO TID #0 Loratadine 10 mg PO DAILY PRN #0 PRN Reason: Rhinitis Omeprazole 20 mg PO DAILY #0 cap Guaifenesin/Dextromethorphan [Guaifenesin Dm Syrup] 10 ml PO Q4H PRN PRN Reason: Cough Famotidine [Pepcid] 20 mg PO HS PRN PRN Reason: Heartburn Gabapentin [Neurontin] 200 mg PO HS No Action PredniSONE [Deltasone] 20 mg PO WB Azithromycin [Zithromax] 250 mg PO DAILY Discharge Instructions/Outpatient Orders: Final Provider Discharge Instructions Location: Determined By Patient - Disposition 03 To U Not [facility] ([facility])
== END 2016-09-10 16:10 | DRG 871 ==
LOC: ED 10:44 → MED 13:25
PROVIDERS: ADMIT Hospitalist; ATTEND Internal Medicine